=== PATIENT | female | born 1995 | race Caucasian/White ===

== ENCOUNTER 2016-05-07 08:24 | Inpatient (IN) | payer OTHER ==
[2016-05-07] MEDS ORDERED: PENICILLIN G-K 5 MILLION UNIT VIAL ONE ×2 (08:44→12:50)
[2016-05-07] MEDS ORDERED: LIDOCAINE 1% INJ-PF (10 MG/ML) 30 ML SDV ONE (08:44)
[2016-05-07] MEDS ORDERED: MISOPROSTOL 0.2 MG TABLET ONE (08:44)
[2016-05-07] MEDS ORDERED: OXYTOCIN/NORMAL SALINE 20 UNIT/1,000 ML RTUINJ ONE ×2 (08:44→14:56)
[2016-05-07] MEDS ORDERED: PENICILLIN G POTASSIUM 5,000,000 UNIT in DEXTROSE 5%-WATER 100 ML IV ONE (08:48)
[2016-05-07] MEDS ORDERED: RINGERS SOLUTION,LACTATED 1,000 ML IV ONE (08:48)
[2016-05-07 09:27] LABS: ABSOLUTE EOSINOPHILS # (AUTO) 0.1 10^3/uL (0.0-0.6); ABSOLUTE LYMPHOCYTES (AUTO) 1.7 10^3/uL (0.5-4.7); ABSOLUTE MONOCYTES (AUTO) 0.4 10^3/uL (0.1-1.4); ABSOLUTE NEUT (AUTO) 7.2 10^3/uL (1.7-8.2); BASOPHILS % (AUTO) 0.5 % (0-2); EOSINOPHILS % (AUTO) 1.2 % (0-6); HEMATOCRIT 29.7 % (36.0-47.0); HEMOGLOBIN 10.2 g/dL (12.0-15.5); HGB HCT DIFFERENCE 0.9; LYMPHOCYTES % (AUTO) 18.2 % (13-45); MEAN CORPUSCULAR HEMOGLOBIN 29.1 pg (27.0-33.4); MEAN CORPUSCULAR HGB CONC 34.4 g/dL (32.0-36.0); MEAN CORPUSCULAR VOLUME 85 fl (80-97); MONOCYTES % (AUTO) 4.7 % (3-13); RED BLOOD COUNT 3.51 10^6/uL (3.72-5.28); RED CELL DISTRIBUTION WIDTH 13.4 % (11.5-14.0); SEGMENTED NEUTROPHILS % (AUTO) 75.4 % (42-78); WHITE BLOOD COUNT 9.5 10^3/uL (4.0-10.5)
[2016-05-07] MEDS ORDERED: EPHEDRINE SULFATE INJ 50 MG/1 ML AMPULE ONE (09:56)
[2016-05-07] MEDS ORDERED: BUPIVACAINE HCL 0.25 % INJ/PF (2.5 MG/1 ML) 30 ML VIAL ONE (09:56)
[2016-05-07] MEDS ORDERED: FENTANYL/BUPIVACAINE/NS/PF 200 MCG/100 ML RTUINJ EPI ONE (09:56)
--- NOTE | 2016-05-07 10:00 | L&D Flow Sheet ---
LD Flowsheet Datetime Report Generated by CPN: 05/07/2016 10:00 Datetime: 05/07/2016 09:00 Uterine Activity Resting Tone (Palpate): Relaxed (Suraj Candace, RN) Assessment A Monitor Mode: External US (Suraj Candace, ) Pain Pain Scale: 4 (Suraj Candace, ) Pain Presence: Intermittent ([facility], ) Pain Type: Contraction ([facility], ) Pain Location: Abdomen; [facility] Pain Goal: 1 ([facility], ) Pain Coping: Breathing Through Contractions ([facility], ) Vaginal Exam Dilatation (cm): 6.0 (Suraj MILLER Maria) Effacement (%): 90 (Suraj Candace, ) Station: 0 (Suraj Candace, ) Membrane Status: Intact (Suraj Candace, ) Vaginal Bleeding: Scant (Suraj Candace, ) Maternal Assessment Level of Consciousness: Fully Conscious (Suraj Maria, RN) Headache: Denies (Suraj Maria, RN) Nausea/Vomiting: Denies (Suraj Maria, RN) RUQ Epigastric Pain: Denies (Surajneftali Maria, RN) Medications Antibiotics: Penicillin IV (Units) @ (Surajneftali Maria, RN) Patient Care Patient Position/Activity: HOB Lowered; Right Lateral (Surajneftali Maria, RN) Datetime: 05/07/2016 08:56 Vital Signs NBP Sys/Helena/Mean (mmHg): 107 (QS system process) : 69 (QS system process) : 80 (QS system process) Pulse: 104 (QS system process)
--- NOTE | 2016-05-07 12:00 | L&D Flow Sheet ---
LD Flowsheet Datetime Report Generated by CPN: 05/07/2016 12:00 Datetime: 05/07/2016 11:47 NBP Sys/[place]ena/Mean (mmHg): 96 (QS system process) : 54 (QS system process) : 72 (QS system process) Pulse: 71 (QS system process) Datetime: 05/07/2016 11:45 Monitor Mode: External (Suraj Maria RN) Frequency (min): Irregular (Suraj Maria RN) Quality: Mild (Suraj Candace, RN) Resting Tone (Palpate): Relaxed (Suraj Maria, RN) Monitor Mode: External US (Suraj Maria, RN) FHR Baseline Rate : 120 (Suraj Marai, RN) Variability: Moderate 6-25 bpm (Suraj Candace, RN) Accelerations: 15X15 (Suraj Candace, RN) Decelerations: None (Suraj Maria, RN) Datetime: 05/07/2016 11:39 Respirations: 16 (Suraj Maria, MILLER) Pain Scale: 0 (Suraj Maria, RN) Pain Presence: None/Denies (Suraj Maria, RN) Pain Type: N/A (Suraj Maria, RN) Pain Goal: 0 (Suraj Maria, RN) Pain Relief Measures: Epidural Given; Comfort Measures (Suraj Maria, RN) Patient Position/Activity: Right Lateral; Peanut Ball (Suraj Maria, RN) Comfort Measures: Breathing/Relaxation; Family Support (Suraj Maria, RN) Datetime: 05/07/2016 11:32 NBP Sys/Hel[place]/Mean (mmHg): 108 (QS system process) : 59 (QS system process) : 78 (QS system process) Pulse: 67 (QS system process) Datetime: 05/07/2016 11:30 Monitor Mode: External (Suraj Candace, RN) Frequency (min): 6-8 (Suraj Candace, RN) Quality: Mild (Suraj Candace, RN) Duration (sec): 70-80 (Suraj Candace, RN) Resting Tone (Palpate): Relaxed (Suraj Candace, RN) Monitor Mode: External US (Suraj Candace, RN) FHR Baseline Rate : 120 (Suraj Candace, RN) Variability: Moderate 6-25 bpm (Suraj Candace, RN) Accelerations: 15X15 (Suraj Candace, RN) Decelerations: None (Suraj Candace, RN) Datetime: 05/07/2016 11:18 NBP Sys/Hel[place]/Mean (mmHg): 110 (QS system process) : 58 (QS system process) : 79 (QS system process) Pulse: 69 (QS system process) Datetime: 05/07/2016 11:15 Monitor Mode: External (Suraj Candace, RN) Frequency (min): 6-7 (Suraj Candace, RN) Quality: Mild (Suraj Candace, RN) Duration (sec): 80-100 (Suraj Candace, RN) Resting Tone (Palpate): Relaxed (Suraj Candace, RN) Monitor Mode: External US (Suraj Candace, RN) FHR Baseline Rate : 125 (Suraj Candace, RN) Variability: Moderate 6-25 bpm (Suraj Candace, RN) Accelerations: 15X15 (Suraj Candace, RN) Decelerations: None (Suraj Candace, RN) Datetime: 05/07/2016 11:04 NBP Sys/[place]/Mean (mmHg): 110 (QS system process) : 58 (QS system process) : 78 (QS system process) Pulse: 67 (QS system process) Datetime: 05/07/2016 11:00 Monitor Mode: External US (Suraj Maria, RN) FHR Baseline Rate : 125 (Suraj Maria, RN) Variability: Moderate 6-25 bpm (Suraj Maria, RN) Accelerations: 10X10 (Suraj Maria, RN) Decelerations: None (Suraj Maria, RN) Datetime: 05/07/2016 10:47 NBP Sys/[place]/Mean (mmHg): 115 (QS system process) : 62 (QS system process) : 80 (QS system process) Pulse: 75 (QS system process) Datetime: 05/07/2016 10:45 Monitor Mode: External (Suraj Maria, RN) Frequency (min): Irregular (Suraj Candace, RN) Quality: Mild (Suraj Candace, RN) Duration (sec): 70 (Suraj Candace, RN) Datetime: 05/07/2016 10:44 Monitor Mode: External US (Suraj Candace, RN) FHR Baseline Rate : 120 (Suraj Candace, RN) Variability: Moderate 6-25 bpm (Suraj Candace, RN) Accelerations: 15X15 (Suraj Candace, RN) Decelerations: None (Suraj Candace, RN) Datetime: 05/07/2016 10:42 NBP Sys/[place]/Mean (mmHg): 116 (QS system process) : 62 (QS system process) : 81 (QS system process) Pulse: 64 (QS system process) Datetime: 05/07/2016 10:36 NBP Sys/[place]/Mean (mmHg): 118 (QS system process) : 60 (QS system process) : 83 (QS system process) Pulse: 64 (QS system process) Datetime: 05/07/2016 10:35 NBP Sys/[place]/Mean (mmHg): 120 (QS system process) : 62 (QS system process) : 83 (QS system process) Pulse: 63 (QS system process) Datetime: 05/07/2016 10:34 NBP Sys/[place]/Mean (mmHg): 125 (QS system process) : 62 (QS system process) : 86 (QS system process) Pulse: 75 (QS system process) I/O Interventions: Lopez Cath Inserted (Suraj Maria RN) Datetime: 05/07/2016 10:33 NBP Sys/[place]/Mean (mmHg): 119 (QS system process) : 59 (QS system process) : 82 (QS system process) Pulse: 76 (QS system process) Datetime: 05/07/2016 10:32 NBP Sys/[place]/Mean (mmHg): 118 (QS system process) : 60 (QS system process) : 82 (QS system process) : 84 (QS system process) Pulse: 65 (QS system process) Pulse: 73 (QS system process) Procedure Type: Epidural (Suraj Maria RN) Epidural Procedure Other: Pump Started (Suraj Maria RN) Anesthesia Level Check: T10- Umbilicus (Suraj Maria RN) Datetime: 05/07/2016 10:31 NBP Sys/[place]/Mean (mmHg): 125 (QS system process) : 60 (QS system process) : 87 (QS system process) Pulse: 69 (QS system process) Datetime: 05/07/2016 10:30 Monitor Mode: External US (Suraj Maria, RN) FHR Baseline Rate : 125 (Suraj Candace, RN) Variability: Moderate 6-25 bpm (Suraj Candace, RN) Accelerations: 15X15 (Suraj Candace, RN) Datetime: 05/07/2016 10:29 NBP Sys/[place]/Mean (mmHg): 133 (QS system process) : 72 (QS system process) : 93 (QS system process) Pulse: 78 (QS system process) Contraction Comments: Difficult to determine pts contraction pattern due to patients positioning for epidural (Suraj Maria, RN) Datetime: 05/07/2016 10:28 NBP Sys/[place]/Mean (mmHg): 123 (QS system process) : 67 (QS system process) : 89 (QS system process) Pulse: 75 (QS system process) Datetime: 05/07/2016 10:27 NBP Sys/[place]/Mean (mmHg): 137 (QS system process) : 77 (QS system process) : 101 (QS system process) Pulse: 64 (QS system process) Datetime: 05/07/2016 10:26 NBP Sys/[place]/Mean (mmHg): 138 (QS system process) : 76 (QS system process) : 102 (QS system process) Pulse: 57 (QS system process) Epidural Procedure: Loading Dose (Suraj Maria RN) Datetime: 05/07/2016 10:25 Epidural Procedure: Cath Placed (Suraj Maria RN) Epidural Procedure: Test Dose (Suraj Maria RN) Datetime: 05/07/2016 10:18 Procedure Type: Epidural (Suraj Maria RN) Procedure Verify: Correct Patient Identity; Agreement on Procedure to be Done; Correct Patient Position; Relevant Images and Results are Properly Labeled and Displayed (Suraj Maria RN) Anesthesia Plans: Epidural (Suraj Maria RN) Epidural Positioning: Sitting (Suraj Maria RN) Anesthesia Comments: Dr. Juarez at bedside (Suraj Maria RN) Datetime: 05/07/2016 10:04 NBP Sys/[place]/Mean (mmHg): 106 (QS system process) : 56 (QS system process) : 78 (QS system process) Pulse: 64 (QS system process) Datetime: 05/07/2016 10:00 Monitor Mode: External (Suraj Maria RN) Frequency (min): 7 (Suraj Maria RN) Quality: Mild (Suraj Maria RN) Duration (sec): 60-110 (Suraj Maria RN) Resting Tone (Palpate): Relaxed (Suraj Maria RN) Monitor Mode: External US (Suraj Maira RN) FHR Baseline Rate : 125 (Suraj Maria RN) Variability: Moderate 6-25 bpm (Suraj Maria RN) Accelerations: 15X15 (Suraj Maria RN) Decelerations: None (Suraj Maria RN) Procedure Type: Epidural (Suraj Maria RN) Procedure Verify: Correct Patient Identity; Agreement on Procedure to be Done; Relevant Images and Results are Properly Labeled and Displayed (Suraj Maria RN)
[2016-05-07 12:08] LABS: APPEARANCE,URINE CLOUDY; BILIRUBIN,URINE NEGATIVE (NEGATIVE); GLUCOSE, URINE NEGATIVE (NEGATIVE); KETONES,URINE NEGATIVE (NEGATIVE); LEUKOCYTE ESTERASE,URINE LARGE (NEGATIVE); NITRITE,URINE NEGATIVE (NEGATIVE); PROTEIN,URINE 30 mg/dL (NEGATIVE); UROBILINOGEN,URINE NEGATIVE mg/dL (<2.0)
--- NOTE | 2016-05-07 12:40 | L&D Progress Notes ---
PROGRESS NOTES Datetime Report Generated by CPN: 05/07/2016 12:40 PROGRESS NOTE Impression: Normal Progression of Labor Impression: Normal Progression of Labor Procedures: Artificial ROM; Sterile Vag Exam Procedures: Artificial ROM; Sterile Vag Exam Plan: Continue Present Management Plan: Continue Present Management Informed Consent Obtained: Vaginal Delivery Informed Consent Obtained: Vaginal Delivery Vital Signs : Reviewed Vital Signs : Reviewed; Within Normal Limits Comment: Comfortable with epidural AROM, clear Anticipate VAGINAL EXAM Dilatation: 8 Dilatation: 7 Effacement: 100 Effacement: 90 Station: 1 Station: 0 Contractions: irregular Contractions: 2-6 MEMBRANES Membranes: Ruptured Membranes: Intact Amniotic Fluid Color: Clear FETUS A FHR - Baseline: 125 Monitoring: External US Variability: Moderate 6-25bpm Decelerations: None FHR Category: Category I Estimated Weight (gm): 3400 Presentation: Vertex SIGNATURE SIGNATURE: [id number] Assignment: Veronique Barnes MD Signature: with User ID: [email or web address] : with User ID: Estee
[2016-05-07 12:50] LABS: URINE BARBITURATES SCREEN NEGATIVE; URINE METHADONE SCREEN NEGATIVE; URINE OPIATES LOW NEGATIVE; URINE PHENCYCLIDINE SCREEN NEGATIVE
[2016-05-07] MEDS: RINGERS SOLUTION,LACTATED 1,000 ML IV PRN ×2 (13:04→13:12)
[2016-05-07] MEDS: PENICILLIN G POTASSIUM 2,500,000 UNIT in DEXTROSE 5%-WATER 50 ML IV SCH ×3 (13:14→19:50)
--- NOTE | 2016-05-07 14:00 | L&D Flow Sheet ---
LD Flowsheet Datetime Report Generated by CPN: 05/07/2016 14:00 Datetime: 05/07/2016 13:48 NBP Sys/[place]/Mean (mmHg): 135 (QS system process) : 78 (QS system process) : 102 (QS system process) Pulse: 72 (QS system process) LaborFlag: Labor (QS system process) Datetime: 05/07/2016 13:32 NBP Sys/[place]/Mean (mmHg): 122 (QS system process) : 70 (QS system process) : 90 (QS system process) Pulse: 50 (QS system process) LaborFlag: Labor (QS system process) Datetime: 05/07/2016 13:29 Monitor Mode: External US (Suraj Maria RN) FHR Baseline Rate : 125 (Suraj Maria, RN) Variability: Moderate 6-25 bpm (Suraj Maria, RN) Accelerations: 10X10 (Suraj Maria, RN) Decelerations: None (Suraj Maria, RN) Patient Position/Activity: Left Lateral; Peanut Ball (Suraj Maria, RN) Datetime: 05/07/2016 13:17 NBP Sys/[place]/Mean (mmHg): 133 (QS system process) : 63 (QS system process) : 88 (QS system process) Pulse: 58 (QS system process) LaborFlag: Labor (QS system process) Datetime: 05/07/2016 13:15 Monitor Mode: External (Suraj Candace, RN) Frequency (min): 3-5 (Suraj Candace, RN) Quality: Mild/Moderate (Suraj Candace, RN) Duration (sec): 70-110 (Suraj Candace, RN) Resting Tone (Palpate): Relaxed (Suraj Candace, RN) Monitor Mode: External US (Suraj Candace, RN) FHR Baseline Rate : 125 (Suraj Candace, RN) Variability: Minimal - Undetectable to <=5 bpm (Suraj Candace, RN) Accelerations: None (Suraj Candace, RN) Decelerations: None (Suraj Candace, RN) Datetime: 05/07/2016 13:02 NBP Sys/[place]/Mean (mmHg): 103 (QS system process) : 56 (QS system process) : 75 (QS system process) Pulse: 62 (QS system process) LaborFlag: Labor (QS system process) Datetime: 05/07/2016 13:00 Monitor Mode: External (Suraj Candace, RN) Frequency (min): 3-5 (Suraj Candace, RN) Quality: Mild/Moderate (Suraj Candace, RN) Duration (sec): 60-110 (Suraj Candace, RN) Resting Tone (Palpate): Relaxed (Suraj Candace, RN) Monitor Mode: External US (Suraj Candace, RN) FHR Baseline Rate : 125 (Suraj Candace, RN) Variability: Moderate 6-25 bpm (Suraj Candace, RN) Accelerations: 10X10 (Suraj Candace, RN) Decelerations: None (Suraj Candace, RN) Antibiotics: Penicillin IV (Units) @ [id number] (Suraj Candace, RN) Datetime: 05/07/2016 12:49 NBP Sys/[place]/Mean (mmHg): 111 (QS system process) : 58 (QS system process) : 81 (QS system process) Pulse: 55 (QS system process) LaborFlag: Labor (QS system process) Datetime: 05/07/2016 12:45 Monitor Mode: External (Suraj Candace, RN) Frequency (min): Irregular (Suraj Candace, RN) Quality: Mild/Moderate (Suraj Candace, RN) Resting Tone (Palpate): Relaxed (Suraj Candace, RN) Monitor Mode: External US (Suraj Candace, RN) FHR Baseline Rate : 125 (Suraj Candace, RN) Variability: Moderate 6-25 bpm (Suraj Candace, RN) Accelerations: 15X15 (Suraj Candace, RN) Decelerations: None (Suraj Candace, RN) Datetime: 05/07/2016 12:38 Patient Position/Activity: High Fowlers; Tailors (Suraj Candace, RN) I/O Interventions: Clear Liquids Given (Suraj Candace, RN) Datetime: 05/07/2016 12:33 Stage of : Labor (Maine Rivera RN) Dilatation (cm): 8.0 (Maine Rivera RN) Effacement (%): 100 (Maine Rivera RN) Station: 1 (Maine Rivera RN) Exam by: Santo YOUNG CNM (Maine Rivera RN) Membrane Status: Ruptured (Maine Rivera RN) Membranes Rupture Method: Artificial (Maine Rivera RN) Amniotic Fluid Color: Clear (Maine Rivera RN) Amniotic Fluid Amount: Moderate (Maine Rivera RN) Vaginal Bleeding: Small (Maine Rivera RN) Cervix, Consistency: Soft (Maine Rivera RN) Cervix, Position: Anterior (Maine Rivera RN) Provider Reviewed Strip: Yes (Maine Rivera RN) Communication: RN at Bedside; RN Reviewed Strip; Provider at Bedside (Maine Rivera RN) Communication Comments: CNM @ BS (Maine Rivera RN) Datetime: 05/07/2016 12:32 NBP Sys/[place]/Mean (mmHg): 99 (QS system process) : 61 (QS system process) : 74 (QS system process) LaborFlag: Labor (QS system process) Datetime: 05/07/2016 12:30 Stage of : Labor (Maine Rivera RN) Respirations: 18 (Maine Rivera RN) Temperature (F): 98.0 (Maine Rivera RN) Temperature (C): 36.7 (QS system process) Monitor Mode: External (Maine Rivera RN) Frequency (min): IRREG (Maine Rivera RN) Quality: Moderate (Maine Rivera RN) Duration (sec): 60-90 (Maine Rivera RN) Resting Tone (Palpate): Relaxed (Maine Rivera RN) Monitor Mode: External US (Maine Rivera RN) FHR Baseline Rate : 120 (Maine Rivera RN) FHR Baseline Changes: No Baseline Change (Maine Rivera RN) Variability: Moderate 6-25 bpm (Maine Rivera RN) Accelerations: 15X15 (Maine Rivera RN) Decelerations: None (Maine Rivera RN) Pain Scale: 0 (Maine Rivera RN) Pain Presence: None/Denies (Maine Rivera RN) Pain Type: N/A (Maine Rivera RN) Pain Relief Measures: Comfort Measures (Maine Rivera RN) Pain Coping: Talking Through Contractions (Maine Rivera RN) IV/Blood Work: IV Infusing per Order (Maine Rivera, MILLRE) Patient Position/Activity: Left Extreme; Peanut Ball (Maine Rivera, MILLER) Comfort Measures: Family Support (Maine Rivera RN) Communication: RN at Bedside; RN Reviewed Strip (Maine Rivera RN) LaborFlag: Labor (QS system process) Datetime: 05/07/2016 12:17 NBP Sys/[place]/Mean (mmHg): 102 (QS system process) : 59 (QS system process) : 78 (QS system process) Pulse: 52 (QS system process) LaborFlag: Labor (QS system process) Datetime: 05/07/2016 12:15 Temperature (F): 98.0 (Suraj Maria RN) Temperature (C): 36.7 (QS system process) Temperature Route: Oral (Suraj Maria RN) Monitor Mode: External (Suraj Maria RN) Frequency (min): Irregular (Suraj Maria RN) Quality: Mild/Moderate (Suraj Maria RN) Resting Tone (Palpate): Relaxed (Suraj Maria RN) Monitor Mode: External US (Suraj Maria RN) FHR Baseline Rate : 125 (Suraj Maria RN) Variability: Moderate 6-25 bpm (Suraj Maria RN) Accelerations: 15X15 (Suraj Maria RN) Decelerations: None (Suraj Maria RN) Patient Position/Activity: HOB Lowered; Left Lateral; Peanut Ball (Suraj Maria RN) LaborFlag: Labor (QS system process) Datetime: 05/07/2016 12:02 NBP Sys/[place]/Mean (mmHg): 96 (QS system process) : 51 (QS system process) : 67 (QS system process) Pulse: 61 (QS system process) LaborFlag: Labor (QS system process) Datetime: 05/07/2016 12:00 Monitor Mode: External (Suraj Maria RN) Frequency (min): Irregular (Suraj Maria RN) Quality: Mild/Moderate (Suraj Maria RN) Resting Tone (Palpate): Relaxed (Suraj Maria RN) Monitor Mode: External US (Suraj Maria RN) FHR Baseline Rate : 120 (Suraj Maria RN) Variability: Moderate 6-25 bpm (Suraj Maria RN) Accelerations: 15X15 (Suraj Maria RN) Decelerations: None (Suraj Maria RN)
[2016-05-07] MEDS ORDERED: DIBUCAINE 1% OINTMENT 28 GM TP PRN (14:32)
[2016-05-07] MEDS ORDERED: BENZOCAINE/MENTHOL AEROSOL SPRAY 56 ML TOP PRN (14:32)
[2016-05-07] MEDS ORDERED: ACETAMINOPHEN WITH CODEINE #3 TABLET PO PRN ×2 (14:32)
[2016-05-07] MEDS ORDERED: DIPH/PERTUSS(ACELL)/TETANUS VAC/PF 0.5 ML SYR (>=10YO) IM PRN (14:32)
[2016-05-07] MEDS ORDERED: MEASLES,MUMPS&RUBELLA VACC/PF 0.5 ML VIAL SUBCUT PRN (14:32)
[2016-05-07] MEDS ORDERED: ZOLPIDEM TARTRATE 5 MG TABLET PO PRN (14:32)
[2016-05-07] MEDS ORDERED: OXYTOCIN/NORMAL SALINE 1,000 ML IV PRN (14:32)
--- NOTE | 2016-05-07 16:00 | L&D Flow Sheet ---
LD Flowsheet Datetime Report Generated by CPN: 05/07/2016 16:00 Datetime: 05/07/2016 15:45 Stage of : Recovery (Suraj Maria RN) Pulse: 63 (Suraj Maria RN) Respirations: 16 (Suraj Maria RN) Pain Scale: 0 (Suraj Maria RN) Pain Presence: None/Denies (Suraj Maria RN) Pain Type: N/A (Suraj Maria RN) Pain Goal: 0 (Suraj Maria ) Datetime: 05/07/2016 15:32 NBP Sys/[place]/Mean (mmHg): 116 (QS system process) : 59 (QS system process) : 82 (QS system process) Pulse: 63 (QS system process) Datetime: 05/07/2016 15:30 Stage of : Recovery (Suraj Maria RN) Respirations: 16 (Suraj MILLER Maria) Pain Scale: 0 (Suraj MILLER Maria) Pain Presence: None/Denies (Suraj MILLER Maria) Pain Type: N/A (Suraj MILLER Maria) Pain Goal: 0 (Suraj Candace ) Datetime: 05/07/2016 15:17 NBP Sys/[place]/Mean (mmHg): 125 (QS system process) : 74 (QS system process) : 88 (QS system process) Pulse: 88 (QS system process) Datetime: 05/07/2016 15:15 Stage of : Recovery (Suraj Maria RN) Pain Scale: 0 (Suraj Maria RN) Pain Presence: None/Denies (Suraj Maria RN) Pain Type: N/A (Suraj Maria RN) Pain Goal: 0 (Suraj Maria RN) Datetime: 05/07/2016 15:02 NBP Sys/[place]/Mean (mmHg): 117 (QS system process) : 66 (QS system process) : 86 (QS system process) Pulse: 73 (QS system process) Datetime: 05/07/2016 15:00 Stage of : Recovery (Suraj Maria RN) Pain Scale: 0 (Suraj Maria RN) Pain Presence: None/Denies (Suraj Maria RN) Pain Type: N/A (Suraj Maria RN) Pain Goal: 0 (Suraj Maria RN) Datetime: 05/07/2016 14:47 NBP Sys/[place]/Mean (mmHg): 118 (QS system process) : 63 (QS system process) : 86 (QS system process) Pulse: 69 (QS system process) Datetime: 05/07/2016 14:45 Stage of : Recovery (Suraj Marai RN) Pulse: 73 (Suraj Maria RN) Respirations: 16 (Suraj Maria RN) Temperature (F): 97.8 (Suraj Maria RN) Temperature (C): 36.6 (QS system process) Temperature Route: Oral (Suraj Maria RN) Pain Scale: 0 (Suraj Maria RN) Pain Presence: None/Denies (Suraj Maria RN) Pain Type: N/A (Suraj Maria RN) Pain Goal: 0 (Suraj Candace, RN) Datetime: 05/07/2016 14:32 NBP Sys/[place]/Mean (mmHg): 120 (QS system process) : 60 (QS system process) : 87 (QS system process) Pulse: 74 (QS system process) Datetime: 05/07/2016 14:30 Stage of : Recovery (Suraj Candace, RN) Datetime: 05/07/2016 14:18 NBP Sys/[place]/Mean (mmHg): 116 (QS system process) : 56 (QS system process) : 81 (QS system process) Pulse: 71 (QS system process) Datetime: 05/07/2016 14:15 Stage of : Recovery (Suraj Maria RN) Pain Scale: 1 (Suraj Maria RN) Pain Presence: None/Denies (Suraj Maria RN) Pain Type: Sore in perineum area (Suraj Maria RN) Pain Location: Perineum (Suraj Maria RN) Pain Goal: 0 (Suraj Maria RN) Pain Relief Measures: Comfort Measures (Suraj Maria RN) Datetime: 05/07/2016 14:02 NBP Sys/[place]/Mean (mmHg): 135 (QS system process) : 60 (QS system process) : 87 (QS system process) Pulse: 74 (QS system process) Datetime: 05/07/2016 14:00 Stage of : (Suraj Maria RN) Monitor Mode: External US (Suraj Maria RN) FHR Baseline Rate : 130 (Suraj Maria RN) Variability: Moderate 6-25 bpm (Suraj Maria, RN) Accelerations: 15X15 (Suraj Maria, RN) Decelerations: None (Suraj Maria, RN) Pain Scale: 1 (Suraj Maria RN) Pain Presence: None/Denies (Suraj Maria RN) Pain Type: Cramping (Suraj Maria, MILLER) Pain Location: Perineum (uSraj Maria, RN) Pain Goal: 0 (Suraj Maria RN) Pain Relief Measures: Comfort Measures (Suraj Maria RN)
--- NOTE | 2016-05-07 16:04 | Delivery Summary ---
Del Sum A-C Datetime Report Generated by CPN: 05/07/2016 16:03 ADMISSION DATA Chief Complaint: Uterine Contractions Indication for Induction: Not Applicable Admission Impression: Term, Intrauterine ; Active Labor; Intact Membranes Admission Impression Comments: GBS positive Admit Provider Comments: Active labor GBS positive, pcn Pt may have epidural Anticipate DELIVERY PERSONNEL Delivery Doctor:: Yusra Reyes CNM Nurse Glass Beveler Certified:: Yusra Reyes CNM Labor and Delivery Nurse:: Suraj Mendoza RNwater filtration technician Nurse:: Maine Rivera RN Student Observers:: Estee Learyub Tech/JOESPH: Divya Matute CNA II MATERNAL INFORMATION Delivery Anesthesia: Epidural Medications After Delivery: Pitocin Bolus-Please Comment Meds After Delivery Comment: Gave 20 Units/1000ml NS Estimated Blood Loss (ml): 200 Maternal Complications: None Provider Comments: of viable female infant over intact perineum, head delivered without difficulty, loose nuchal cord X1 noted, reduced, shoulders and body delivered without difficulty. with spontaneous cry and respirations to maternal abdomen cord clamped X2, cut free after 2 minute delay. Infant kept skin to skin. Spontaneous delivery of intact placenta, 3 VC via shelby mechanism. Vagina and perineum and inspected, no lacerations noted, hemostasis acheived with external fundal massage and IV pitocin. Mother and infant in stable condition, routine pp care. LABOR SUMMARY EDC: 05/06/2016 00:00 No. Babies in Womb: 1 Attempted: No Labor Anesthesia: Epidural LABOR INFORMATION Reason for Induction: Not Applicable Onset of Labor: 05/07/2016 08:45 Complete Dilatation: 05/07/2016 13:51 Other Ripening Agents: None Oxytocin: N/A Group B Beta Strep: positive Antibiotics # of Doses: 2 Antibiotics Time of Last Dose: 1300 Name of Antibiotic Given: PCN Steroids Given: None Reason Steroids Not Administered: Not Applicable MEMBRANES Membranes Rupture Method: Artificial Rupture of Membranes: 05/07/2016 12:33 Length of Rupture (hr): 1.33 Amniotic Fluid Color: Clear Amniotic Fluid Amount: Moderate Amniotic Fluid Odor: Normal STAGES OF LABOR Stage 1 hr: 5 Stage 1 min: 6 Stage 2 hr: 0 Stage 2 min: 2 Stage 3 hr: 0 Stage 3 min: 4 Total Time in Labor hr: 5 Total Time in Labor min: 12 VAGINAL DELIVERY Episiotomy: None Laceration Extension: N/A Laceration Type: None Laceration Repair: Not Applicable Laceration Repair Note: n/a Sponge Count Correct: N/A Sharps Count Correct: N/A CSECTION DELIVERY Primary Indication: N/A Secondary Indication: N/A CSection Incidence: N/A Labor: N/A Elective: N/A CSection Incision: N/A BABY A INFORMATION Infant Delivery Date/Time: 05/07/2016 13:53 Method of Delivery: Vaginal Born in Route : No : N/A Forceps: N/A Vacuum Extraction: N/A Shoulder Dystocia : No PRESENTATION/POSITION BABY A Presentation: Cephalic Cephalic Presentation: Vertex Vertex Position: Left Occipital Anterior Breech Presentation: N/A PLACENTA INFORMATION BABY A Placenta Delivery Time : 05/07/2016 13:57 Placenta Method of Delivery: Spontaneous Placenta Status: Delivered SCORES BABY A Heart Rate 1 min: >100 bpm Resp Effort 1 min: Good Cry Reflex Irritability 1 min: Cough or Sneeze or Pulls Away Muscle Tone 1 min: Active Motion Color 1 min: Body [place], Extremities Blue Resuscitation Effort 1 min: N/A SCORE 1 MIN: 9 Heart Rate 5 min: >100 bpm Resp Effort 5 min: Good Cry Reflex Irritability 5 min: Cough or Sneeze or Pulls Away Muscle Tone 5 min: Active Motion Color 5 min: Body [place], Extremities Blue Resuscitation Effort 5 min: N/A SCORE 5 MIN: 9 INFORMATION BABY A Gestational Age at Delivery: 40.1 Gestational Status: Full Term- 39- 40.6 Weeks Infant Outcome : Liveborn Infant Condition : Stable Infant Sex: Female IDENTIFICATION BABY A Infant Verification Date/Time: 05/07/2016 14:46 ID Band Number: [id number] Mother's Name Verified: Yes RN Verifying Infant: Rey Mendoza RN Additional Verifying Personnel: MEHRAN Rivera RN WEIGHT/LENGTH BABY A Infant Birthweight (gm): 3425 Infant Weight (lb): 7 Infant Weight (oz): 9 Infant Length (in): 18.50 Infant Length (cm): 46.99 CORD INFORMATION BABY A No. Cord Vessels: 3 Nuchal Cord : N/A Cord Blood Taken: Yes-For Storage (Mom's Blood type +) Infant Suction: None ASSESSMENT BABY A Complications: Other Complications- Other: TERMINAL MECONIUM Physical Findings at Delivery: Within Normal Limits Infant Respirations: Appears Normal Skin to Skin: Yes Skin to Skin Time (min): 60 Adult Parole Officer/ALS Called : No Care By: MEHRAN RIVERA RN; Mariam MENDOZA RN Transferred To: Remains with Mother BABY B INFORMATION : N/A SIGNATURES Assignment: Veronique Barnes MD Signature: with User ID: [email or web address] : with User ID: [email or web address]
--- NOTE | 2016-05-07 17:06 | Admission Physical ---
Datetime Report Generated by CPN: 05/07/2016 17:06 CURRENT ADMISSION Hx Assessment: The History has been Reviewed and is Current Chief Complaint: Uterine Contractions Indication for Induction: Not Applicable Admit Impression- Other: GBS positive Admit Plan: Admit to Unit; Initiate Labor Protocol ALLERGIES Medication Allergies: No Medication Allergies: No Known Allergies (05/07/2016) Medication Allergies: No Known Allergies (12/06/2015) Latex: No Latex Allergies Food Allergies: None Environmental Allergies: None OBSTETRICAL HISTORY EDC: 05/06/2016 00:00 : 4 Para: 3 Term: 3 : 0 SAB: 0 Ectopic: 0 Livin Cesareans: 0 VBACs: 0 Multiple Births: 0 Gestational Diabetes: No Rh Sensitization: No Incompetent Cervix: No SARA: No Infertility: No ART Treatment: No Uterine Anomaly: No IUGR: No Hx Previous C/S: No Macrosomia: No Hx Loss/Stillborn: No PIH: No Hx : No Placenta Previa/Abruption: No Depression/PP Depression: Yes PTL/PROM: No Post Hemorrhage: No Current Procedures: Ultrasound; NST Obstetrical History Comments: PPD AFTER 1ST SEE RECORDS Alcohol: Yes Advised to Stop: Yes Alcohol Comments: As a teenager Marijuana : Yes Marijuana Comments: As a teenager Cocaine: No Other Illicit Drugs: No Cigarettes: Current Everyday Smoker. [id number] Cigarette Frequency: 5 - 10 per day Advised to Stop: Yes MEDICAL HISTORY Diabetes: No Blood Transfusion: No Pulmonary Disease (Asthma, TB): No Breast Disease: No Hypertension: No Tactical Debriefer Officer Surgery: No Heart Disease: No Hosp/Surgery: Yes Autoimmune Disorder: No Anesthetic Complications: No Kidney Disease: No Abnormal Pap Smear: No Neuro/Epilepsy: No Psychiatric Disorders: No Other Medical Diseases: No Hepatitis/Liver Disease: No Significant Family History: No Varicosities/Phlebitis: No Trauma/Violence : No Thyroid Dysfunction: No Medical History Comments: CHILDBIRTH INFECTIOUS HISTORY Gonorrhea: No Genital Herpes: No Chlamydia: No Tuberculosis: No Syphilis: No Hepatitis: No HIV/AIDS Exposure: No Rash or Viral Illness: No HPV: No PHYSICAL EXAM General: Normal HEENT: Normal Neurologic: Normal Thyroid: Deferred Heart: Normal Lungs: Normal Breast: Normal Back: Normal Abdomen: Normal Genitourinary Exam: Normal Extremities: Normal DTRs: Normal Pelvic Type: Adequate Vital Signs: Reviewed; Within Normal Limits VAGINAL EXAM Dilatation: 8 Dilatation: 7 Effacement: 100 Effacement: 90 Station: 1 Station: 0 Contraction Comments: irregular Contraction Comments: 2-6 MEMBRANES Membranes: Ruptured Membranes: Intact Amniotic Fluid Color: Clear FETUS A EGA: 40.1 Monitoring: External US FHR- Baseline: 125 Variability: Moderate 6-25bpm Accelerations: 15X15 Decelerations: None FHR Category: Category I Estimated Weight (gm): 3400 Presentation: Vertex Admit Comment: Active labor GBS positive, pcn Pt may have epidural Anticipate PLANS FOR LABOR AND DELIVERY Pain Management: Epidural Feeding Preference: Both Benefit of Breast Feed Discussed: Yes Circumcision: N/A INFORMED CONSENT Informed Consent Obtained: Vaginal Delivery Informed Consent Obtained: Vaginal Delivery Assignment: Veronique Barnes MD Signature: with User ID: [email or web address] : with User ID: [email or web address]
[2016-05-07] MEDS: FERROUS SULFATE 325 MG TABLET PO SCH (18:42)
[2016-05-07] MEDS: DOCUSATE SODIUM 100 MG CAPSULE PO SCH (18:42)
--- NOTE | 2016-05-07 19:01 | L&D Flow Sheet ---
LD Flowsheet Datetime Report Generated by CPN: 05/07/2016 19:00 Datetime: 05/07/2016 17:02 Vital Signs Stage of : Recovery (Maine Leighann Roulund, RN) Datetime: 05/07/2016 16:47 NBP Sys/Helena/Mean (mmHg): 116 (QS system process) : 61 (QS system process) : 83 (QS system process) Pulse: 57 (QS system process) Datetime: 05/07/2016 16:45 Vital Signs Stage of : Recovery (Surajsanto Maria, RN) Pulse: 57 (Suraj Candace, RN) Respirations: 16 (Suraj Maria, RN) Pain Pain Scale: 0 (Suraj Candace, RN) Pain Presence: None/Denies (Suraj Candace, RN) Pain Type: N/A (Suraj Candace, RN) Pain Goal: 0 (Suraj Candace, RN) Datetime: 05/07/2016 16:32 NBP Sys/Helena/Mean (mmHg): 111 (QS system process) : 54 (QS system process) : 78 (QS system process) Pulse: 65 (QS system process) Datetime: 05/07/2016 16:30 Vital Signs Stage of : Recovery (Suraj Maria, RN) Pulse: 68 (Suraj Maria, RN) Respirations: 16 (Suraj Maria, RN) Pain Pain Scale: 1 (Suraj Maria, RN) Pain Presence: Intermittent (Suraj Maria, RN) Pain Type: Cramping; Dull (Suraj Maria, RN) Pain Location: Abdomen (Suraj Maria, RN) Pain Goal: 0 (Suraj Maria, RN) Pain Relief Measures: Comfort Measures (Suraj Maria, RN) Datetime: 05/07/2016 16:17 Vital Signs Stage of : Recovery (Maine Lawton Saleemulicesrosaura, RN) NBP Sys/Helena/Mean (mmHg): 109 (QS system process) : 55 (QS system process) : 75 (QS system process) Pulse: 68 (QS system process) Respirations: 18 (Maine Rivera, RN) Datetime: 05/07/2016 16:03 Vital Signs Stage of : Recovery (Suraj Rocaford, RN) NBP Sys/Helena/Mean (mmHg): 135 (QS system process) : 62 (QS system process) : 89 (QS system process) Pulse: 60 (QS system process) Pain Pain Scale: 1 (Suraj Maria RN) Pain Presence: Intermittent (Suraj Maria RN) Pain Type: Cramping; Dull (Suraj Maria RN) Pain Location: Abdomen (Suraj Maria RN) Pain Goal: 0 (Suraj Maria RN) Pain Relief Measures: Pt declines pain medication (Suraj Maria RN) Datetime: 05/07/2016 16:00 Vital Signs Stage of : Recovery (Suraj Maria RN) Pulse: 60 (Suraj Maria RN) Respirations: 16 (Suraj Maria RN) Temperature ([facility]): [facility].9 [facility] Temperature (C): 37.2 (QS system process) Temperature Route: Oral (Suraj Maria, ) Pain Pain Scale: 2 (Suraj Candace, ) Pain Presence: Intermittent [facility] Pain Type: Cramping; Dull ([facility] Pain Location: Abdomen ([facility]) Pain Goal: 0 ([facility]) Pain Relief Measures: Pt declines medication for cramping ([facility]) Datetime: 05/07/2016 15:45 Vital Signs Stage of : Recovery (Suraj Maria, ) Pulse: 63 (Suraj Maria, RN) Respirations: 16 (Suraj Maria, MILLER) Pain Pain Scale: 0 (Suraj Maria, ) Pain Presence: None/Denies (Suraj Maria, ) Pain Type: N/A (Suraj Maria, ) Pain Goal: 0 (Suraj Maria, ) Datetime: 05/07/2016 15:32 NBP Sys/Helena/Mean (mmHg): 116 (QS system process) : 59 (QS system process) : 82 (QS system process) Pulse: 63 (QS system process) Datetime: 05/07/2016 15:30 Vital Signs Stage of : Recovery (Suraj Maria, RN) Respirations: 16 (Surajsanto Maria, RN) Pain Pain Scale: 0 (Suraj Maria, RN) Pain Presence: None/Denies (Suraj Maria, RN) Pain Type: N/A (Suraj Maria, RN) Pain Goal: 0 (Suraj Maria, RN) Datetime: 05/07/2016 15:17 Vital Signs Stage of : Recovery (Maine Leighann Saleemlund, RN) NBP Sys/Helena/Mean (mmHg): 125 (QS system process) : 74 (QS system process) : 88 (QS system process) Pulse: 88 (QS system process) Respirations: 18 (Maine Leighann Roulund, RN) Datetime: 05/07/2016 15:15 Vital Signs Stage of : Recovery (Suraj Rocaford, RN) Pain Pain Scale: 0 (Suraj Maria, RN) Pain Presence: None/Denies (Suraj Maria, RN) Pain Type: N/A (Surajsanto Maria, RN) Pain Goal: 0 (Surajsanto Maria, RN) Datetime: 05/07/2016 15:02 Vital Signs Stage of : Recovery (Maine Leighann Nicole, RN) NBP Sys/Helena/Mean (mmHg): 117 (QS system process) : 66 (QS system process) : 86 (QS system process) Pulse: 73 (QS system process) Respirations: 18 (Maine Rivera, RN) Datetime: 05/07/2016 15:00 Vital Signs Stage of : Recovery (Surajsanto Maria, RN) Pain Pain Scale: 0 (Suraj Candace, RN) Pain Presence: None/Denies (Suraj Maria, RN) Pain Type: N/A (Suraj Maria, RN) Pain Goal: 0 (Suraj Maria, RN) Datetime: 05/07/2016 14:47 Vital Signs Stage of : Recovery (Maine Lozoyarosaura, RN) NBP Sys/Helena/Mean (mmHg): 118 (QS system process) : 63 (QS system process) : 86 (QS system process) Pulse: 69 (QS system process) Respirations: 18 (Maine Nesbittcharity Rivera, RN) Datetime: 05/07/2016 14:45 Vital Signs Stage of : [facility] Pulse: 73 ([facility] Respirations: 16 (Suraj Candace, ) Temperature (F): 97.8 (Suraj Maria, ) Temperature (C): 36.6 (QS system process) Temperature Route: Oral ([facility] Pain Pain Scale: 0 (Suraj Candace, ) Pain Presence: None/Denies (Suraj Candace, ) Pain Type: N/A (Suraj Candace, ) Pain Goal: 0 (Suraj Candace, ) Datetime: 05/07/2016 14:32 Vital Signs Stage of : Recovery (Maine Leighann Saleemlund, RN) NBP Sys/Helena/Mean (mmHg): 120 (QS system process) : 60 (QS system process) : 87 (QS system process) Pulse: 74 (QS system process) Respirations: 18 (Maine Leighann Roulund, RN) Datetime: 05/07/2016 14:30 Vital Signs Stage of : Recovery (Suraj Candace, RN) Pain Pain Scale: 1 (Maine Rivera, RN) Pain Presence: None/Denies (Maine Rivera, RN) Pain Type: N/A (Maine Leighann Rivera, RN) Pain Relief Measures: Comfort Measures (Maine Leighann Rivera, RN) Datetime: 05/07/2016 14:18 Vital Signs Stage of : Recovery (Maine Rivera, RN) NBP Sys/Helena/Mean (mmHg): 116 (QS system process) : 56 (QS system process) : 81 (QS system process) Pulse: 71 (QS system process) Respirations: 18 (Maine Mongelund, RN) Datetime: 05/07/2016 14:15 Vital Signs Stage of : Recovery (Suraj Candace, RN) Pain Pain Scale: 1 (Suraj Maria, RN) Pain Presence: None/Denies (Suraj Rocaford, RN) Pain Type: Sore in perineum area (Suraj Rocaford, RN) Pain Location: Perineum (Suraj Rocaford, RN) Pain Goal: 0 (Suraj Rocaford, RN) Pain Relief Measures: Comfort Measures (Suraj Maria, RN) Datetime: 05/07/2016 14:02 NBP Sys/Helena/Mean (mmHg): 135 (QS system process) : 60 (QS system process) : 87 (QS system process) Pulse: 74 (QS system process) Datetime: 05/07/2016 14:00 Vital Signs Stage of : (Suraj Candace, ) Assessment A Monitor Mode: External US ([facility], ) FHR Baseline Rate : 130 ([facility], ) Variability: Moderate 6-25 bpm ([facility], ) Accelerations: 15X15 ([facility], ) Decelerations: None ([facility], ) Pain Pain Scale: 1 ([facility], ) Pain Presence: None/Denies ([facility], RN) Pain Type: Cramping ([facility], RN) Pain Location: Perineum ([facility], RN) Pain Goal: 0 ([facility], ) Pain Relief Measures: Comfort Measures ([facility], ) Datetime: 05/07/2016 13:52 Vital Signs Stage of : Labor (Maine Rivera RN) Stage 2 Pushing: Coached on Pushing; Urge to Push (Maine Rivera RN) Pushing Position: Pushing with Contractions (Maine Rivera RN) Pushing Progress: Descent with Pushing; with Pushing; Pushing Effectively with Contractions (Maine Rivera RN) Stage 2 Comments: OF VIABLE FEMALE @1352. APGARS 9/9. SEE DELIVERY SUMMARY. (Maine Leighann Roulund, RN) Communication Communication: RN at Bedside; RN Reviewed Strip; Provider at Bedside (Maine Rivera, RN) Datetime: 05/07/2016 13:51 Vaginal Exam Dilatation (cm): 10.0 (Suraj Maria, RN) Effacement (%): 100 (Suraj Maria RN) Station: 2 (Suraj Maria, RN) Exam by: Eric, H (Suraj Maria RN) Communication Communication: RN at Bedside; Provider at Bedside (Suraj Maria RN) Communication Comments: PT began pushing (Suraj Maria, MILLER) Datetime: 05/07/2016 13:48 Vital Signs Stage of : Labor (Suraj Maria RN) NBP Sys/Helena/Mean (mmHg): 135 (QS system process) : 78 (QS system process) : 102 (QS system process) Pulse: 72 (QS system process) Respirations: 18 (Suraj Maria RN) LaborFlag: Labor (QS system process) Datetime: 05/07/2016 13:45 Uterine Activity Monitor Mode: External (Suraj Candace, RN) Frequency (min): 1.5-2 (Suraj Maria, RN) Quality: Mild/Moderate (Suraj Candace, RN) Duration (sec): 50-90 (Suraj Candace, RN) Resting Tone (Palpate): Relaxed (Suraj Maria, RN) Assessment A Monitor Mode: External US (Suraj Maria, RN) FHR Baseline Rate : 125 (Suraj Maria, RN) Variability: Moderate 6-25 bpm (Suraj Maria, RN) Accelerations: 15X15 (Suraj Maria, RN) Decelerations: None (Suraj Candace, RN) Datetime: 05/07/2016 13:32 Vital Signs Stage of : Labor (Suraj Maria, RN) NBP Sys/Helena/Mean (mmHg): 122 (QS system process) : 70 (QS system process) : 90 (QS system process) Pulse: 50 (QS system process) Respirations: 18 (Suraj Maria, RN) LaborFlag: Labor (QS system process) Datetime: 05/07/2016 13:29 Assessment A Monitor Mode: External US (Suraj Candace, RN) FHR Baseline Rate : 125 (Suraj Candace, RN) Variability: Moderate 6-25 bpm (Suraj Candace, RN) Accelerations: 10X10 (Suraj Candace, RN) Decelerations: None (Suraj Candace, RN) Patient Position/Activity: Left Lateral; Peanut Ball (Suraj Maria, RN) Datetime: 05/07/2016 13:17 Vital Signs Stage of : Labor (Suraj Maria RN) NBP Sys/Helena/Mean (mmHg): 133 (QS system process) : 63 (QS system process) : 88 (QS system process) Pulse: 58 (QS system process) Respirations: 18 (Suraj Maria, MILLER) LaborFlag: Labor (QS system process) Datetime: 05/07/2016 13:15 Uterine Activity Monitor Mode: External (Suraj Maria, MILLER) Frequency (min): 3-5 (Suraj Maria RN) Quality: Mild/Moderate (Suraj Maria RN) Duration (sec): 70-110 (Suraj Maria RN) Resting Tone (Palpate): Relaxed (Suraj Maria RN) Assessment A Monitor Mode: External US (Suraj Rocaford, RN) FHR Baseline Rate : 125 (Suraj Candace, RN) Variability: Minimal - Undetectable to <=5 bpm (Suraj Candace, RN) Accelerations: None (Suraj Candace, RN) Decelerations: None (Suraj Rocaford, RN) Datetime: 05/07/2016 13:02 NBP Sys/Helena/Mean (mmHg): 103 (QS system process) : 56 (QS system process) : 75 (QS system process) Pulse: 62 (QS system process) LaborFlag: Labor (QS system process) Datetime: 05/07/2016 13:00 Vital Signs Stage of : Labor (Suraj Candace, RN) Uterine Activity Monitor Mode: External (Suraj Candace, RN) Frequency (min): 3-5 (Suraj Candace, RN) Quality: Mild/Moderate (Suraj Candace, RN) Duration (sec): 60-110 (Suraj Candace, RN) Resting Tone (Palpate): Relaxed (Suraj Candace, RN) Assessment A Monitor Mode: External US (Suraj Maria, RN) FHR Baseline Rate : 125 (Suraj Maria, RN) Variability: Moderate 6-25 bpm (Suraj Candace, RN) Accelerations: 10X10 (Suraj Rocaford, RN) Decelerations: None (Suraj Rocaford, RN) Pain Pain Scale: 0 (Suraj Maria, RN) Pain Presence: None/Denies (Suraj Candace, RN) Pain Type: N/A (Surajsanto Maria, RN) Pain Relief Measures: Comfort Measures (Surajsanto Maria, RN) Pain Coping: Talking Through Contractions (Suraj Candace, RN) Medications Antibiotics: Penicillin IV (Units) @ [id number] (Suraj Candace, RN) LaborFlag: Labor (QS system process) Datetime: 05/07/2016 12:49 Vital Signs Stage of : Labor (Suraj Maria, RN) NBP Sys/Helena/Mean (mmHg): 111 (QS system process) : 58 (QS system process) : 81 (QS system process) Pulse: 55 (QS system process) Respirations: 18 (Suraj Maria, RN) LaborFlag: Labor (QS system process) Datetime: 05/07/2016 12:45 Uterine Activity Monitor Mode: External (Suraj Candace, RN) Frequency (min): Irregular (Suraj Candace, RN) Quality: Mild/Moderate (Suraj Candace, RN) Resting Tone (Palpate): Relaxed (Suraj Candace, RN) Assessment A Monitor Mode: External US (Suraj Candace, RN) FHR Baseline Rate : 125 (Suraj Candace, RN) Variability: Moderate 6-25 bpm (Suraj Candace, RN) Accelerations: 15X15 (Suraj Candace, RN) Decelerations: None (Suraj Candace, RN) Datetime: 05/07/2016 12:38 Patient Position/Activity: High Fowlers; Tailors (Suraj Candace, RN) I/O Interventions: Clear Liquids Given (Suraj Candace, RN) Datetime: 05/07/2016 12:33 Vital Signs Stage of : Labor (Maine Rivera RN) Vaginal Exam Dilatation (cm): 8.0 (Maine Rivera RN) Effacement (%): 100 (Maine Rivera RN) Station: 1 (Maine Rivera RN) Exam by: Santo REYES CNM (Maine Rivera RN) Membrane Status: Ruptured (Maine Rivera RN) Membranes Rupture Method: Artificial (Maine Rivera RN) Amniotic Fluid Color: Clear (Maine Rivera RN) Amniotic Fluid Amount: Moderate (Maine Leighann Roulund, RN) Vaginal Bleeding: Small (Maine Rivera, RN) Cervix, Consistency: Soft (Maine Rivera, RN) Cervix, Position: Anterior (Maine Rivera, MILLER) Provider Reviewed Strip: Yes (Maine Leighann Rivera, RN) Communication Communication: RN at Bedside; RN Reviewed Strip; Provider at Bedside (Maine Rivera, MILLER) Communication Comments: CNM @ BS (Maine Rivera, MILLER) Datetime: 05/07/2016 12:32 Vital Signs Stage of : Labor (Suraj Maria RN) NBP Sys/Helena/Mean (mmHg): 99 (QS system process) : 61 (QS system process) : 74 (QS system process) Respirations: 18 (Suraj Maria RN) LaborFlag: Labor (QS system process) Datetime: 05/07/2016 12:30 Vital Signs Stage of : Labor (Maine Rivera RN) Respirations: 18 (Maine Rivera RN) Temperature (F): 98.0 (Maine Rivera RN) Temperature (C): 36.7 (QS system process) Uterine Activity Monitor Mode: External (Maine Leighann Roulund, RN) Frequency (min): IRREG (Maine Leighann Roulund, RN) Quality: Moderate (Maine Leighann Roulund, RN) Duration (sec): 60-90 (Maine Leighann Roulund, RN) Resting Tone (Palpate): Relaxed (Maine Leighann Roulund, RN) Assessment A Monitor Mode: External US (Maine Leighann Roulund, RN) FHR Baseline Rate : 120 (Maine Leighann Roulund, RN) FHR Baseline Changes: No Baseline Change (Maine Leighann Roulund, RN) Variability: Moderate 6-25 bpm (Maine Leighann Roulund, RN) Accelerations: 15X15 (Maine Leighann Roulund, RN) Decelerations: None (Maine Leighann Roulund, RN) Pain Pain Scale: 0 (Maine Leighann Roulund, RN) Pain Presence: None/Denies (Maine Rivera RN) Pain Type: N/A (Maine Rivera RN) Pain Relief Measures: Comfort Measures (Maine Rivera RN) Pain Coping: Talking Through Contractions (Maine Rivera RN) Patient Care IV/Blood Work: IV Infusing per Order (Maine Rivera RN) Patient Position/Activity: Left Extreme; Peanut Ball (Maine Rivera RN) Comfort Measures: Family Support (Maine Rivera RN) Communication Communication: RN at Bedside; RN Reviewed Strip (Maine Rivera RN) LaborFlag: Labor (QS system process) Datetime: 05/07/2016 12:17 Vital Signs Stage of : Labor (Suraj Maria, MILLER) NBP Sys/Helena/Mean (mmHg): 102 (QS system process) : 59 (QS system process) : 78 (QS system process) Pulse: 52 (QS system process) Respirations: 18 (Suraj Maria, MILLER) LaborFlag: Labor (QS system process) Datetime: 05/07/2016 12:15 Temperature (F): 98.0 (Suraj Maria RN) Temperature (C): 36.7 (QS system process) Temperature Route: Oral (Suraj Maria, RN) Uterine Activity Monitor Mode: External (Suraj Candace, RN) Frequency (min): Irregular (Suraj Candace, RN) Quality: Mild/Moderate (Suraj Candace, RN) Resting Tone (Palpate): Relaxed (Suraj Candace, RN) Assessment A Monitor Mode: External US (Suraj Candace, RN) FHR Baseline Rate : 125 (Suraj Candace, RN) Variability: Moderate 6-25 bpm (Suraj Candace, RN) Accelerations: 15X15 (Suraj Candace, RN) Decelerations: None (Suraj Candace, RN) Patient Position/Activity: HOB Lowered; Left Lateral; Peanut Ball (Suraj Candace, RN) LaborFlag: Labor (QS system process) Datetime: 05/07/2016 12:02 Vital Signs Stage of : Labor (Suraj Maria, RN) NBP Sys/Helena/Mean (mmHg): 96 (QS system process) : 51 (QS system process) : 67 (QS system process) Pulse: 61 (QS system process) Respirations: 18 (Surajsanto Maria, RN) LaborFlag: Labor (QS system process) Datetime: 05/07/2016 12:00 Vital Signs Stage of : Labor (Suraj Candace, RN) Uterine Activity Monitor Mode: External (Suraj Candace, RN) Frequency (min): Irregular (Suraj Candace, RN) Quality: Mild/Moderate (Suraj Candace, RN) Resting Tone (Palpate): Relaxed (Suraj Candace, RN) Assessment A Monitor Mode: External US (Suraj Candace, RN) FHR Baseline Rate : 120 (Suraj Candace, RN) Variability: Moderate 6-25 bpm (Suraj Candace, RN) Accelerations: 15X15 (Suraj Candace, RN) Decelerations: None (Suraj Candace, RN) Pain Pain Scale: 0 (Suraj Maria RN) Pain Presence: None/Denies (Suraj Maria RN) Pain Type: N/A (Suraj Maria RN) Pain Relief Measures: Comfort Measures (Suraj Maria, MILLER) Pain Coping: Talking Through Contractions (Suraj Maria RN) Pain Assessment Comments: 1 (Suraj Maria RN) LaborFlag: Labor (QS system process) Datetime: 05/07/2016 11:47 NBP Sys/Helena/Mean (mmHg): 96 (QS system process) : 54 (QS system process) : 72 (QS system process) Pulse: 71 (QS system process) LaborFlag: Labor (QS system process) Datetime: 05/07/2016 11:45 Uterine Activity Monitor Mode: External (Suraj Candace, RN) Frequency (min): Irregular (Suraj Candace, RN) Quality: Mild (Suraj Candace, RN) Resting Tone (Palpate): Relaxed (Suraj Candace, RN) Assessment A Monitor Mode: External US (Suraj Candace, RN) FHR Baseline Rate : 120 (Suraj Candace, RN) Variability: Moderate 6-25 bpm (Suraj Candace, RN) Accelerations: 15X15 (Suraj Candace, RN) Decelerations: None (Suraj Candace, RN) Datetime: 05/07/2016 11:39 Respirations: 16 (Suraj Candace, RN) Pain Pain Scale: 0 (Suraj Maria RN) Pain Presence: None/Denies (Suraj Maria RN) Pain Type: N/A (uSraj Maria RN) Pain Goal: 0 (Suraj Maria RN) Pain Relief Measures: Epidural Given; Comfort Measures (Suraj Maria RN) Patient Position/Activity: Right Lateral; Peanut Ball (Suraj Maria RN) Comfort Measures: Breathing/Relaxation; Family Support (Suraj Maria RN) LaborFlag: Labor (QS system process) Datetime: 05/07/2016 11:32 NBP Sys/Helena/Mean (mmHg): 108 (QS system process) : 59 (QS system process) : 78 (QS system process) Pulse: 67 (QS system process) LaborFlag: Labor (QS system process) Datetime: 05/07/2016 11:30 Uterine Activity Monitor Mode: External (Suraj Candace, RN) Frequency (min): 6-8 (Suraj Candace, RN) Quality: Mild (Suraj Candace, RN) Duration (sec): 70-80 (Suraj Candace, RN) Resting Tone (Palpate): Relaxed (Suraj Candace, RN) Assessment A Monitor Mode: External US (Suraj Candace, RN) FHR Baseline Rate : 120 (Suraj Candace, RN) Variability: Moderate 6-25 bpm (Suraj Candace, RN) Accelerations: 15X15 (Suraj Candace, RN) Decelerations: None (Suraj Candace, RN) Datetime: 05/07/2016 11:18 NBP Sys/Helena/Mean (mmHg): 110 (QS system process) : 58 (QS system process) : 79 (QS system process) Pulse: 69 (QS system process) LaborFlag: Labor (QS system process) Datetime: 05/07/2016 11:15 Uterine Activity Monitor Mode: External (Suraj Maria RN) Frequency (min): 6-7 (Suraj Maria RN) Quality: Mild (Suraj Maria RN) Duration (sec): 80-100 (Suraj Maria RN) Resting Tone (Palpate): Relaxed (Suraj Candace, RN) Assessment A Monitor Mode: External US (Surajsanto Maria, RN) FHR Baseline Rate : 125 (Surajsanto Maria, RN) Variability: Moderate 6-25 bpm (Suraj Maria, RN) Accelerations: 15X15 (Surajsanto Maria, RN) Decelerations: None (Suraj Rocaford, RN) Datetime: 05/07/2016 11:04 NBP Sys/Helena/Mean (mmHg): 110 (QS system process) : 58 (QS system process) : 78 (QS system process) Pulse: 67 (QS system process) LaborFlag: Labor (QS system process) Datetime: 05/07/2016 11:00 Vital Signs Stage of : Labor (Suraj Maria, RN) Assessment A Monitor Mode: External US (Suraj Maria RN) FHR Baseline Rate : 125 (Suraj Maria, RN) Variability: Moderate 6-25 bpm (Suraj Maria, RN) Accelerations: 10X10 (Suraj Maria RN) Decelerations: None (Suraj Maria, RN) Pain Pain Scale: 4 (Suraj Maria, MILLER) Pain Presence: Intermittent (Suraj Maria, MILLER) Pain Type: Contraction (Suraj Maria RN) Pain Location: Abdomen (Suraj Maria, MILLER) Pain Relief Measures: Comfort Measures (Suraj Maria, MILLER) Pain Coping: Breathing Through Contractions (Suraj Maria, MILLER) LaborFlag: Labor (QS system process) Datetime: 05/07/2016 10:47 NBP Sys/Helena/Mean (mmHg): 115 (QS system process) : 62 (QS system process) : 80 (QS system process) Pulse: 75 (QS system process) LaborFlag: Labor (QS system process) Datetime: 05/07/2016 10:45 Uterine Activity Monitor Mode: External (Suraj Candace, RN) Frequency (min): Irregular (Suraj Candace, RN) Quality: Mild (Suraj Candace, RN) Duration (sec): 70 (Suraj Candace, RN) Datetime: 05/07/2016 10:44 Assessment A Monitor Mode: External US (Suraj Candace, RN) FHR Baseline Rate : 120 (Suraj Candace, RN) Variability: Moderate 6-25 bpm (Suraj Candace, RN) Accelerations: 15X15 (Suraj Candace, RN) Decelerations: None (Suraj Candace, RN) Datetime: 05/07/2016 10:42 NBP Sys/Helena/Mean (mmHg): 116 (QS system process) : 62 (QS system process) : 81 (QS system process) Pulse: 64 (QS system process) LaborFlag: Labor (QS system process) Datetime: 05/07/2016 10:36 NBP Sys/Helena/Mean (mmHg): 118 (QS system process) : 60 (QS system process) : 83 (QS system process) Pulse: 64 (QS system process) LaborFlag: Labor (QS system process) Datetime: 05/07/2016 10:35 NBP Sys/Helena/Mean (mmHg): 120 (QS system process) : 62 (QS system process) : 83 (QS system process) Pulse: 63 (QS system process) LaborFlag: Labor (QS system process) Datetime: 05/07/2016 10:34 NBP Sys/Helena/Mean (mmHg): 125 (QS system process) : 62 (QS system process) : 86 (QS system process) Pulse: 75 (QS system process) I/O Interventions: Lopez Cath Inserted (Suraj Maria RN) LaborFlag: Labor (QS system process) Datetime: 05/07/2016 10:33 NBP Sys/Helena/Mean (mmHg): 119 (QS system process) : 59 (QS system process) : 82 (QS system process) Pulse: 76 (QS system process) LaborFlag: Labor (QS system process) Datetime: 05/07/2016 10:32 NBP Sys/Helena/Mean (mmHg): 118 (QS system process) : 60 (QS system process) : 82 (QS system process) : 84 (QS system process) Pulse: 65 (QS system process) Pulse: 73 (QS system process) Procedure TIME OUT Procedure Type: Epidural (Suraj Maria RN) Epidural Procedure Other: Pump Started (Suraj Maria RN) Anesthesia Level Check: T10- Umbilicus (Suraj Maria RN) LaborFlag: Labor (QS system process) Datetime: 05/07/2016 10:31 NBP Sys/Helena/Mean (mmHg): 125 (QS system process) : 60 (QS system process) : 87 (QS system process) Pulse: 69 (QS system process) LaborFlag: Labor (QS system process) Datetime: 05/07/2016 10:30 Assessment A Monitor Mode: External US (Suraj Maria, RN) FHR Baseline Rate : 125 (Suraj Maria, RN) Variability: Moderate 6-25 bpm (Suraj Candace, RN) Accelerations: 15X15 (Suraj Rocaford, RN) Datetime: 05/07/2016 10:29 NBP Sys/Helena/Mean (mmHg): 133 (QS system process) : 72 (QS system process) : 93 (QS system process) Pulse: 78 (QS system process) Contraction Comments: Difficult to determine pts contraction pattern due to patients positioning for epidural (Suraj Maria RN) LaborFlag: Labor (QS system process) Datetime: 05/07/2016 10:28 NBP Sys/Helena/Mean (mmHg): 123 (QS system process) : 67 (QS system process) : 89 (QS system process) Pulse: 75 (QS system process) LaborFlag: Labor (QS system process) Datetime: 05/07/2016 10:27 NBP Sys/[place]ena/Mean (mmHg): 137 (QS system process) : 77 (QS system process) : 101 (QS system process) Pulse: 64 (QS system process) LaborFlag: Labor (QS system process) Datetime: 05/07/2016 10:26 NBP Sys/Helena/Mean (mmHg): 138 (QS system process) : 76 (QS system process) : 102 (QS system process) Pulse: 57 (QS system process) Epidural Procedure: Loading Dose (Suraj Rocaford, RN) LaborFlag: Labor (QS system process) Datetime: 05/07/2016 10:25 Epidural Procedure: Cath Placed (Suraj Rocaford, RN) Epidural Procedure: Test Dose (Suraj Rocaford, RN) Datetime: 05/07/2016 10:18 Procedure TIME OUT Procedure Type: Epidural (Suraj Maria, RN) Procedure Verify: Correct Patient Identity; Agreement on Procedure to be Done; Correct Patient Position; Relevant Images and Results are Properly Labeled and Displayed (Suraj Maria, MILLER) Anesthesia Anesthesia Plans: Epidural (Suraj Maria, RN) Epidural Positioning: Sitting (Suraj Maria, RN) Anesthesia Comments: Dr. Juarez at bedside (Suraj Maria, RN) Datetime: 05/07/2016 10:04 NBP Sys/Helena/Mean (mmHg): 106 (QS system process) : 56 (QS system process) : 78 (QS system process) Pulse: 64 (QS system process) LaborFlag: Labor (QS system process) Datetime: 05/07/2016 10:00 Vital Signs Stage of : Labor (Suraj Maria, RN) Uterine Activity Monitor Mode: External (Suraj Maria RN) Frequency (min): 7 (Suraj Maria RN) Quality: Mild (Suraj aMria RN) Duration (sec): 60-110 (Suraj Maria RN) Resting Tone (Palpate): Relaxed (Suraj Maria RN) Assessment A Monitor Mode: External US (Suraj Candace, RN) FHR Baseline Rate : 125 (Suraj Candace, RN) Variability: Moderate 6-25 bpm (Suraj Candace, RN) Accelerations: 15X15 (Suraj Candace, RN) Decelerations: None (Suraj Candace, RN) Pain Pain Scale: 4 (Suraj Candace, RN) Pain Presence: Intermittent (Suraj Candace, RN) Pain Type: Contraction (Suraj Candace, RN) Pain Location: Abdomen (Suraj Candace, RN) Pain Relief Measures: Comfort Measures (Suraj Candace, RN) Pain Coping: Breathing Through Contractions (Suraj Candace, ) Procedure TIME OUT Procedure Type: Epidural (Suraj Maria RN) Procedure Verify: Correct Patient Identity; Agreement on Procedure to be Done; Relevant Images and Results are Properly Labeled and Displayed (Suraj Maria RN) LaborFlag: Labor (QS system process) Datetime: 05/07/2016 09:30 Uterine Activity Monitor Mode: External (Suraj Maria RN) Frequency (min): 2-6 (Suraj Maria RN) Quality: Mild (Suraj Maria RN) Duration (sec): 70-130 (Suraj Maria RN) Resting Tone (Palpate): Relaxed (Suraj Maria RN) Assessment A Monitor Mode: External US (Surajsanto Maria, RN) FHR Baseline Rate : 135 (Surajsanto Maria, RN) Variability: Moderate 6-25 bpm (Surajsanto Maria, RN) Accelerations: 15X15 (Suraj Candace, RN) Decelerations: None (Suraj Rocaford, RN) Datetime: 05/07/2016 09:00 Vital Signs Stage of : Labor (Suraj Rocaford, RN) Uterine Activity Monitor Mode: External; Palpation (Maine Rivera RN) Frequency (min): Irregular and mild (Suraj Maria RN) Quality: Moderate (Maine Rivera RN) Duration (sec): IRREG (Maine Rivera RN) Resting Tone (Palpate): Relaxed (Suraj Maria RN) Assessment A Monitor Mode: External US (Suraj Maria RN) Pain Pain Scale: 4 (Suraj Maria RN) Pain Presence: Intermittent (Suraj Maria RN) Pain Type: Contraction (Suraj Maria RN) Pain Location: Abdomen; Back (Suraj Maria RN) Pain Goal: 1 (Suraj Maria RN) Pain Relief Measures: Comfort Measures (Maine Rivera RN) Pain Coping: Breathing Through Contractions; Requesting Pain Medication or Epidural (Maine Rivera RN) Vaginal Exam Dilatation (cm): 6.5 (Maine Rivera RN) Effacement (%): 90 (Suraj Maria RN) Station: 0 (Suraj Maria RN) Exam by: Santo REYES CNM (Maine Rivera RN) Membrane Status: Intact (Suraj Maria RN) Vaginal Bleeding: Scant (Suraj Maria RN) Avery's Score Dilatation (cm): 5 or greater cms (Maine Rivera RN) Effacement: >80_ effaced (Maine Rivera RN) Station: minus 1 to 0 (Maine Rivera RN) Consistency: Soft (Maine Rivera RN) Position: Midposition (Maine Rivera RN) Total Avery's Score: 11 (QS system process) : 9-14 = Usually no failure for induction (QS system process) Maternal Assessment Level of Consciousness: Fully Conscious (Suraj Maria, MILLER) Headache: Denies (Suraj Maria, MILLER) Breath Sounds, Left: Clear and Equal (Maine Rivera, MILLER) Breath Sounds, Right: Clear and Equal (Maine Rivera, MILLER) Nausea/Vomiting: Denies (Suraj Maria, MILLER) RUQ Epigastric Pain: Denies (Suraj Candace, MILLER) Medications Antibiotics: Penicillin IV (Units) @ (Annotations: [id number] units) (Suraj Maria, RN) Patient Care IV/Blood Work: IV Started; IV Bolus Started; New IV Bag Hung (Maine Rivera RN) Patient Position/Activity: HOB Lowered; Right Lateral (Suraj Maria RN) Comfort Measures: Family Support (Maine Rivera RN) I/O Interventions: Clear Liquids Given; Up to BR (Maine Rivera RN) Procedure TIME OUT Procedure Type: Epidural (Suraj Maria RN) Procedure Verify: Correct Patient Identity; Agreement on Procedure to be Done; Relevant Images and Results are Properly Labeled and Displayed (Suraj Maria RN) Teaching Instructional Method: Verbal; Patient Instructed; Family/Support Person Instructed; Verbalized Understanding (Maine Rivera RN) Plan of Care: Plan of Care Discussed; Labor (Maine Rivera RN) Unit Routine: [place] to Room; Call Cramer; Bed; Visiting Policy; Phone/Cell Phone Use; Unit Personnel; Handwashing; Monitoring; Safety/Fall Risk Prevention; Diet/Nutrition Services; Bathroom Privileges (Maine Rivera RN) Labor/Induction: Labor Stages (Maine Rivera RN) Pain Management: Epidural; Pain Scale/Goals; Comfort Measures (Maine Rivera RN) Medications: Antibiotics (Maine Rivera RN) Related: Common Discomforts of ; Maternal Physical Changes; Maternal Emotional Changes; Nutrition; Hydration; Activity and Rest (Maine Rivera RN) LaborFlag: Labor (QS system process) Datetime: 05/07/2016 08:56 NBP Sys/Helena/Mean (mmHg): 107 (QS system process) : 69 (QS system process) : 80 (QS system process) Pulse: 104 (QS system process) Datetime: 05/07/2016 08:45 Vaginal Exam Dilatation (cm): 6.5 (Suraj Maria RN) Effacement (%): 90 (Suraj Maria RN) Station: 0 (Suraj Maria RN) Exam by: Radha Reyes CNM (Suraj Maria RN) Vaginal Bleeding: None (Suraj Maria RN) Cervix, Consistency: Soft (Suraj Maria RN) Cervix, Position: Midposition (Suraj Maria RN)
[2016-05-07] MEDS: IBUPROFEN 800 MG TABLET PO SCH (21:01)
[2016-05-08] MEDS: IBUPROFEN 800 MG TABLET PO SCH ×2 (05:26→14:47)
--- NOTE | 2016-05-08 06:01 | L&D General Admission ---
General Admit Datetime Report Generated by CPN: 05/08/2016 06:00 INFORMATION Patient Age: 21 (05/07/2016 08:24:QS system process) EDC: 05/06/2016 00:00 (05/07/2016 08:59:Donna Loya RNC) : 4 (05/07/2016 08:59:Donna Loya RNC) Para: 3 (05/07/2016 08:59:Donna Loya RNC) Term: 3 (05/07/2016 08:59:Donna Loya RNC) : 0 (05/07/2016 08:59:Donna Loya RNC) Spontaneous Abortions: 0 (05/07/2016 08:59:Donna Loya RNC) Livin (05/07/2016 08:59:Donna Loya RNC) Cesareans: 0 (05/07/2016 08:59:Donna Loya RNC) VBACs: 0 (05/07/2016 08:59:Donna Loya RNC) Ectopic: 0 (05/07/2016 08:59:Donna Loya RNC) Multiple [facility]: [facility] Baby, Number in Womb: 1 (05/07/2016 08:59:[facility], [facility]) CARE Primary Adjunct Communications Faculty Member: [employer] ([facility]/07/2016 08:[facility] Month of 1st Visit: September (05/07/2016 08:59:[facility], [facility]) Adequate Care: Yes (05/07/2016 08:[facility] Prepregnancy Weight (lb): 160 (05/07/2016 08:59:[facility], [facility]) Prepregnancy Weight (kg): 72.7 (05/07/2016 08:59:QS system process) Height (in): 63 (05/07/2016 18:55:QS system process) ALLERGIES Medication Allergy: No (05/07/2016 08:59:Donna Loya, [facility]) Medication Allergies: No Known Allergies (05/07/2016) (05/07/2016 08:56:QS system process) Latex Allergy: No Latex Allergies (05/07/2016 08:59:FAIZA Reina) Food Allergies: None (05/07/2016 08:59:Suraj Maria RN) Environmental Allergies: None (05/07/2016 08:59:Suraj Maria RN) COMMUNICATION Primary Language: Kittitian (05/07/2016 08:59:Donna Loya [facility]) Medical Tx Preferred Language: Kittitian (05/07/2016 08:59:Donna Loya [facility]) Communication Barrier(s): None (05/07/2016 08:59:Donna Loya, RN) DEMOGRAPHICS Address: [address] [place] [id number] (05/07/2016 08:24:QS system process) Zipcode: [address] (05/07/2016 08:24:QS system process) Home (05/07/2016 08:24:QS system process) SSN: [id number] (05/07/2016 08:24:QS system process) Next of Kin Name: GEN COTTRELL (05/07/2016 08:24:QS system process) Next of Kin (05/07/2016 08:24:QS system process) Next of Kin Relationship: OR (05/07/2016 08:24:QS system process) Date of : 1995 (05/07/2016 08:24:QS system process) Marital Status: (05/07/2016 13:00:QS system process) Sex: Female (05/07/2016 08:24:QS system process) Occupation: Other (05/07/2016 08:59:Suraj Maria RN) 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 [id number] (05/07/2016 08:59:Donna Camp, RNC) Average Cigarettes Smoked: 5 - 10 per day (05/07/2016 08:59:Suraj Maria RN) Advised to Stop Smoking: Yes (05/07/2016 08:59:Suraj Maria RN) Marijuana: Yes (05/07/2016 08:59:Suraj Maria RN) Marijuana Comments: As a teenager (05/07/2016 08:59:Suraj Maria RN) Cocaine: No (05/07/2016 08:59:Suraj Maria RN) Other Illicit Drugs: No (05/07/2016 08:59:Suraj Maria RN) VACCINE HISTORY Influenza Vaccine: Uncertain (05/07/2016 08:59:Suraj Maria RN) Pneumococcal Vaccine: No (05/07/2016 08:59:Suraj Maria RN) Tetanus Vaccine: No (05/07/2016 08:59:Suraj Maria RN) Tdap Vaccine: Uncertain (05/07/2016 08:59:Suraj Maria RN) Hepatitis B Vaccine: Uncertain (05/07/2016 08:59:Suraj Maria RN) Director Of Community Center: [facility] (05/07/2016 08:59:Suraj Maria RN) Feeding Preference: Both (05/07/2016 08:59:Maine Rivera RN) Benefit of Breast Feed Discussed: Yes (05/07/2016 08:59:Suraj Maria RN) Circumcision: N/A (05/07/2016 08:59:Suraj Maria RN) Classes Attended: No (05/07/2016 08:59:Suraj Maria RN) Tubal Ligation: No (05/07/2016 08:59:FAIZA Reina) Tubal Authorization Signed: N/A (05/07/2016 08:59:FAIZA Reina) Consent: N/A (05/07/2016 08:59:FAIZA Reina) Consent Signed: N/A (05/07/2016 08:59:FAIZA Reina) Pain Management Plans: Epidural (05/07/2016 08:59:Suraj Maria RN) Other Labor and Delivery Plans: Withold cord clamping (05/07/2016 08:59:Suraj Maria RN) Support Person: Gen Cottrell (05/07/2016 08:59:Suraj Maria RN) Support Person Relationship: Significant Other (05/07/2016 08:59:Suraj Maria RN) Cultural/Spritual Practice: No (05/07/2016 08:59:Suraj Maria RN) Spir/Cult Dietary Needs: No (05/07/2016 08:59:Suraj Maria RN) LIVING SITUATION/DISCHARGE PLAN Living Arrangements: House (05/07/2016 08:59:Suraj Maria RN) Adequate Access to:: Electric; Heat; Refrigeration; Plumbing/Running water; Phone; Transportation (05/07/2016 08:59:Suraj Maria RN) WIC Program: No (05/07/2016 08:59:Suraj Maria RN) Discharge Dramatic Teacher Person: Gen Cottrell (05/07/2016 08:59:Suraj Maria RN) Person to Help after Discharge: Gen Cottrell (05/07/2016 08:59:Suraj Maria RN) Currently Using Commun Resources: Yes (05/07/2016 08:59:Suraj Maria RN) Specify Current Resource Used: Medicaid (05/07/2016 08:59:Suraj Maria RN) Outside Agency/Cable Television Access Coordinator: No (05/07/2016 08:59:Suraj Maria RN) Car Seat for Discharge: Yes (05/07/2016 08:59:Suraj Maria RN) Adoption Requested: No (05/07/2016 08:59:Suraj Maria RN) Pt Contact w/infant Post : N/A (05/07/2016 08:59:Suraj Maria RN) LABS Blood Type: A Positive (05/07/2016 08:59:FAIZA Reina) Antibody Screen: negative (05/07/2016 08:59:FAIZA Reina) Hemoglobin: 10.2 L (05/07/2016 09:09:QS system process) Hematocrit: 29.7 L (05/07/2016 09:09:QS system process) MCV: 85 (05/07/2016 09:09:QS system process) Group Beta Strep: positive (05/07/2016 08:59:[facility]) Gonorrhea: Negative (05/07/2016 08:59:[facility]) Chlamydia: Negative (05/07/2016 08:59:[facility]) RPR/VDRL: Nonreactive (05/07/2016 08:59:[facility]) HIV Exposure Test: Negative (05/07/2016 08:59:Maine Rivera RN) Hepatitis B: Negative (05/07/2016 08:59:[facility]) Rubella: Immune (05/07/2016 08:59:[facility]) OB/PREVIOUS HISTORY BCP at Conception: No (05/07/2016 08:59:Suraj Maria RN) Previous Procedures: Ultrasound (05/07/2016 08:59:Suraj Maria RN) Current Procedures: Ultrasound; NST (05/07/2016 08:59:Suraj Maria RN) History of Previous : No (05/07/2016 08:59:Suraj Maria RN) History of Gestational Diabetes: No (05/07/2016 08:59:Suraj Maria RN) History of PIH: No (05/07/2016 08:59:Suraj Maria RN) History of Incompetent Cervix: No (05/07/2016 08:59:Suraj Maria RN) History of Placenta Previa/Abrup: No (05/07/2016 08:59:Suraj Maria RN) History of Macrosomia: No (05/07/2016 08:59:Suraj Maria RN) History of IUGR: No (05/07/2016 08:59:Suraj Maria RN) History of Hemorrhage: No (05/07/2016 08:59:Suraj Maria RN) History of Loss/Stillborn: No (05/07/2016 08:59:Suraj Maria RN) History of : No (05/07/2016 08:59:Suraj Maria RN) History of D (Rh) Sensitization: No (05/07/2016 08:59:Suraj Maria RN) History Recurrent Loss/Stillborn: No (05/07/2016 08:59:Suraj Maria RN) History Depression/PP Depression: Yes (05/07/2016 08:59:Suraj Maria RN) History of Uterine Anomaly/SARA: No (05/07/2016 08:59:Suraj Maria RN) History of Infertility: No (05/07/2016 08:59:Suraj Maria RN) History of ART Treatment: No (05/07/2016 08:59:Suraj Maria RN) History of SARA: No (05/07/2016 08:59:Suraj Maria RN) Comments 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 (05/07/2016 08:59:Maine Rivera RN) MEDICAL HISTORY Med Hx Diabetes: No (05/07/2016 08:59:Suraj Maria RN) Med Hx Hypertension: No (05/07/2016 08:59:Suraj Maria RN) Med Hx Heart Disease: No (05/07/2016 08:59:Suraj Maria RN) Med Hx Autoimmune Disorder: No (05/07/2016 08:59:Suraj Maria RN) Med Hx Kidney Disease/UTI: No (05/07/2016 08:59:Suraj Maria RN) Med Hx Neurologic/Epilepsy: No (05/07/2016 08:59:Suraj Maria RN) Med Hx Psychiatric Disorders: No (05/07/2016 08:59:Suraj Maria RN) Med Hx Hepatitis/Liver Disease: No (05/07/2016 08:59:Suraj Maria RN) Med Hx Varicosities/Phlebitis: No (05/07/2016 08:59:Suraj Maria RN) Med Hx Thyroid Dysfunction: No (05/07/2016 08:59:Suraj Maria RN) Med Hx Trauma/Violence: No (05/07/2016 08:59:Suraj Maria RN) Med Hx Blood Transfusion: No (05/07/2016 08:59:Suraj Maria RN) Med Hx Pulmonary (Asthma,TB): No (05/07/2016 08:59:Suraj Maria RN) Med Hx Breast: No (05/07/2016 08:59:Suraj Maria RN) Med Hx TRUCKSMITH Surgery: No (05/07/2016 08:59:Suraj Maria RN) Med Hx Hospitalization/Surgery: Yes (05/07/2016 08:59:Maine Rivera RN) Med Hx Anesthetic Complications: No (05/07/2016 08:59:Suraj Maria RN) Med Hx Abnormal Pap Smear: No (05/07/2016 08:59:Suraj Maria RN) Other Medical Diseases: No (05/07/2016 08:59:Suraj Maria RN) Med Hx Significant Family Hx: No (05/07/2016 08:59:Suraj Maria RN) Details of Med/Surg Hx: CHILDBIRTH (05/07/2016 08:59:Maine Rivera RN) INFECTIOUS HISTORY Inf Hx Gonorrhea: No (05/07/2016 08:59:Suraj Maria RN) Inf Hx Chlamydia: No (05/07/2016 08:59:Suraj Maria RN) Inf Hx Syphilis: No (05/07/2016 08:59:Suraj Maria RN) Inf Hx HIV/AIDS: No (05/07/2016 08:59:Suraj Maria RN) Inf Hx Human Papilloma Virus: No (05/07/2016 08:59:Suraj Maria RN) Inf Hx Pt/Partner Genital Herpes: No (05/07/2016 08:59:Suraj Maria RN) Inf Hx Tuberculosis/Exposure: No (05/07/2016 08:59:Suraj Marai RN) Inf Hx Hepatitis B,C: No (05/07/2016 08:59:Suraj Maria RN) Inf Hx Rash or Viral Illness: No (05/07/2016 08:59:Suraj Maria RN) GENETIC HISTORY Gen Hx Age >=35 at DONNELL: No (05/07/2016 08:59:Suraj Maria RN) Gen Hx Thalassemia: No (05/07/2016 08:59:Suraj Maria RN) Gen Hx Congenital Heart Defect: No (05/07/2016 08:59:Suraj Maria RN) Gen Hx Neural Tube Defect: No (05/07/2016 08:59:Suraj Maria RN) Gen Hx Down's Syndrome: No (05/07/2016 08:59:Suraj Maria RN) Gen Hx Jerome-Sachs: No (05/07/2016 08:59:Suraj Maria RN) Gen Hx Frida: No (05/07/2016 08:59:Suraj Maria RN) Gen Hx Familial Dysautonomia: No (05/07/2016 08:59:Suraj Maria RN) Gen Hx Sickle Cell Disease/Trait: No (05/07/2016 08:59:Suraj Maria RN) Gen Hx Hemophilia/Blood Disorder: No (05/07/2016 08:59:Suraj Maria RN) Gen Hx Muscular Dystrophy: No (05/07/2016 08:59:Suraj Maria RN) Gen Hx Cystic Fibrosis: No (05/07/2016 08:59:Suraj Maria RN) Gen Hx Huntingtons Chorea: No (05/07/2016 08:59:Suraj Maria RN) Gen Hx Mental Retardation/Autism: No (05/07/2016 08:59:Suraj Maria RN) Gen Hx Tested for Fragile X: No (05/07/2016 08:59:Suraj Maria RN) Gen Hx Other Inher/Chromosomal: No (05/07/2016 08:59:Suraj Maria RN) Gen Hx Maternal Metabolic DO: No (05/07/2016 08:59:Suraj Maria RN) Gen Hx Pt Father or FOB Defect: No (05/07/2016 08:59:Suraj Maria RN) Gen Hx Other Genetic History: No (05/07/2016 08:59:Suraj Maria RN) Gen Hx Drugs/Meds since LMP: No (05/07/2016 08:59:Suraj Maria RN)
--- NOTE | 2016-05-08 06:01 | L&D Current Admission ---
Current Admit Datetime Report Generated by CPN: 05/08/2016 06:00 ADMISSION INFORMATION Current Admit Date/Time: 05/07/2016 08:00 (05/07/2016 09:00:Suraj Maria RN) Reason for Admission: Onset of Labor (05/07/2016 09:00:Suraj Maria RN) Chief Complaint: Contractions (05/07/2016 09:00:Suraj Maria RN) EGA per Dates: 40.1 (05/07/2016 09:00:QS system process) Method of Arrival: Wheelchair (05/07/2016 09:00:Suraj Maria RN) Reason for Induction: Not Applicable (05/07/2016 09:00:Maine Rivera RN) Records Available: Yes (05/07/2016 09:00:Suraj Maria RN) General Admission Information: Reviewed (05/07/2016 09:00:Suraj Maria RN) BELONGINGS/ADVANCED DIRECTIVES Valuables/Personal Effects: Purse/Wallet; Cell Phone; Eyeglasses (05/07/2016 09:00:Suraj Maria RN) Other Belongings: SEE VALUABLES CONSENT (05/07/2016 09:00:Maine Rivera RN) Disposition of Belongings: Kept with Patient (05/07/2016 09:00:Suraj Maria RN) Advance Direct for Healthcare: No, and Wants No Information (05/07/2016 09:00:Suraj Maria RN) Durable Power of Gin Feeder: No (05/07/2016 09:00:Suraj Maria RN) Living Will: No (05/07/2016 09:00:Suraj Maria RN) Organ Donor: Yes (05/07/2016 09:00:Suraj Maria RN) Pt Rights Information Given: Yes (05/07/2016 09:00:Suraj Maria RN) Pt Understands Pt Rights: Yes (05/07/2016 09:00:Suraj Maria RN) LEARNING ASSESSMENT Knowledge Level: Understands L_D Process; Understands Care Activities; Had Pre-Hospital Education; Understands Diagnosis (05/07/2016 09:00:Suraj Maria RN) Barriers to Learning: None (05/07/2016 09:00:Suraj Maria RN) Learning Readiness: Motivated (05/07/2016 09:00:Suraj Maria RN) Learns Best By: 1 to 1 Instruction; Reading; Videos; Demonstration (05/07/2016 09:00:Maine Rivera RN) Learning Needs: Labor and Delivery Process; Pain Management; Symptoms to Report; Treatment Plan; Medication; Diagnosis; Nutrition; Equipment; Care; Community Resources (05/07/2016 09:00:Maine Rivera RN) DOMESTIC VIOLANCE SCREENING Dom Viol Threatened/Hurt: No (05/07/2016 09:00:Suraj Maria RN) Hx of Abuse/Neglect past 2yrs: No (05/07/2016 09:00:Suraj Maria RN) Feel Unsafe Going Home: No (05/07/2016 09:00:Suraj Maria RN) Addt'l Observ Indicating Abuse: No (05/07/2016 09:00:Suraj Maria RN) Considered Personal Harm/Suicide: No (05/07/2016 09:00:Suraj Maria RN) NUTRITIONAL/FUNCTIONAL SCREENING Problem with Appetite >5 Days: No (05/07/2016 09:00:Suraj Maria RN) Chew/Swallow Difficulties: No (05/07/2016 09:00:Suraj Maria RN) Inappropriate Wt Gain/Loss: No (05/07/2016 09:00:Suraj Maria RN) Presence Skin Breakdown/Ulcer: No (05/07/2016 09:00:Suraj Maria RN) Special Diet: No (05/07/2016 09:00:Suraj Maria RN) Pt Requests Electron Gun Assembler Visit: No (05/07/2016 09:00:Suraj Maria RN) Hx of Any of the Following?: N/A (05/07/2016 09:00:Suraj Maria RN) New Diagnosis of: N/A (05/07/2016 09:00:Suraj Maria RN) Requires Assist w/Ambulation: No (05/07/2016 09:00:Suraj Maria RN) Uses Assist Device to Ambulate: No (05/07/2016 09:00:Suraj Maria RN) Pt Requires Help w/ADL's: No (05/07/2016 09:00:Suraj Maria RN)
--- NOTE | 2016-05-08 06:15 | L&D Care Plan ---
LD CARE PLANS Datetime Report Generated by CPN: 05/08/2016 06:15 Datetime: 05/07/2016 09:11 Pain State: Actual (Donna Camp, RNC) Related To: Labor and Delivery Process; Treatment and Procedures; Post (Donna Camp, RNC) Goal(s): Patients Pain will be Assessed and Managed; Patient will Verbalize Adequate Relief of Pain or the Ability to [place] with Current Pain (Donna Camp, RNC) Interventions: Assess Pain Severity on Scale of 0 (None) to 5 (Severe); Assess Type, Location and Intensity of Pain Each Time Client Reports Discomfort and Notify Provider if Unusal Pain Develops; Encourage Proper Breathing and Relaxation Techniques; Offer Alternatives Such as Repositioning, Calm Environment, Massages, Diversional Activities, Ice Pack, Splinting, and Ambulation; Administer Analgesics as Ordered; Assist with Epidural Placement as Appropriate; Evaluate Therapeutic Effectiveness of Medication and Treatments (Donna Loya, FAIZA) Outcome: Patient will Report Absence or Relief of Pain Consistent with Established Pain Goal (FAIZA Reina) Status: Ongoing (FAIZA Reina) Outcome: Patient will have a Decrease in Signs and Symptoms of Discomfort (Donna Loya, RNC) Status: Ongoing (FAIZA Reina) Outcome: Pain will be Controlled During Procedures (FAIZA Reina) Status: Ongoing (FAIZA Reina) Anxiety State: Risk For (Donna Loya, FAIZA) Related To: Labor and Delivery Process; Fear of Unknown; Situational Crisis; Medical Interventions; Significant Life Event (FAIZA Reina) Goal(s): Patient will have Decreased Anxiety and be able to Function at Acceptable Levels (Donna Loya, FAIZA) Interventions: Assess Verbal and Nonverbal Behavioral Indicators of Anxiety; Assist Patient to Identify and Verbalize Symptoms of Anxiety; Identify and Demonstrate Techniques to Control Anxiety; Assist Patient with Coping Mechanisms to Manage Anxiety; Provide Theraputic Touch for the Patient; Explain to Patient, Using a Calm Reassuring Approach and Nonmedical Terms, All Activities, Procedures, and Concerns; Instruct Patient and Family about Post Discharge Care, Limitations, Symptoms to Report and Resources Available (Donna Loya, FAIZA) Outcome: Patient will Identify, Verbalize and Demonstrate Techniques to Control Anxiety (FAIZA Reina) Status: Ongoing (Donna Loya, [facility]) Outcome: Patient's Posture, Facial Expressions, Gestures and Activity Level will Reflect Decreased Anxiety (FAIZA Reina) Status: Ongoing (Donna Loya, RN) Outcome: Patient will Verbalize a Sense of Control and/or Acceptance of the Situation (Donna Loya, RNC) Status: Ongoing (Donna Loya, RN) Outcome: Patient will Identify and Utilize Support Person (Donna Loya RN) Status: Ongoing (Donna Loya [facility]) Knowledge Deficit State: Actual (FAIZA Reina) Related To: Labor and Delivery Process; Treatment and Procedures; Feeding and Care; Community Resources and Available Support Mechanisms (FAIZA Reina) Goal(s): Patient will Accurately Verbalize Understanding of Plan of Care and Treatment; Patient and Family will Accurately Verbalize Understanding of the Disease Process (FAIZA Reina) Interventions: Assess Motivation and Willingness of Patient/Family to Learn; Assess Preferred Learning Mode: One to One Instruction, Reading, Videos, Group Discussion or Demonstration; Assess Barriers to Learning: Pain, Emotional State, Language Barrier, Cognitive Impairment, Visual or Hearing Deficits; Assess Patient and Family Knowledge of Disease Process, Medications and Treatment; Discuss Therapy and/or Treatment Options, Describe Rationale Behind Management, Therapy and Treatment Recommendations; Instruct Patient and Family on Signs and Symptoms to Report; Instruct Patient and Family on Medication Effects and Side Effects; Provide Appropriate and Timely Education Using Multiple Techniques; Provide Patient and Family with Support Group Information and Resources; Give Clear and Thorough Explanations and Demonstrations (FAIZA Reina) Outcome: Patient and Family will Verbalize Understanding of Condition, Treatment and Signs and Symptoms to Report (FAIZA Reina) Status: Ongoing (FAIZA Reina) Outcome: Patient will Identify Perceived Learning Needs and Express Motivation to Learn ([facility]) Status: Ongoing ([facility]) Outcome: Patient will Verbalize Understanding of Desired Content, and/or Performs Desired Skill Prior to Discharge ([facility]) Status: Ongoing ([facility], [facility]) Infection State: Actual (Donna Loya, [facility]) Related To: Invasive Procedures (Donna Loya, [facility]) Goal(s): The Patient will be Free of Infection, Vital Signs Stable and Lab Work within Normal Parameters (Donna Lilly, [facility]) Interventions: Instruct and Reinforce Proper Handwashing, Hygiene, and Care Techniques to Patient and Family; Monitor Vital Signs; Monitor Patient for the Following Signs of Infection: Fever, Abdominal Tenderness, Unusual Discharge; Monitor Aminiotic Fluid, Urine and Lochia for Color and Odor; Observe Wounds, Incisions and Invasive Line Sites for Redness, Drainage and Edema; Assess IV Sites per Hospital Policy; Monitor Lab and Test Results and Notify Provider of Abnormal Findings; Assess Nutritional Status and Promote Good Nutrition (Donna Loya, [facility]) Outcome: Patient will Remain Free of Infection (Donna Lilly, RN) Status: [facility]ngoing [facility]) Outcome: Infection will be Recognized Early to Allow for Prompt Treatment (Donna Loya, [facility]) Status: Ongoing ([facility]) Outcome: Patient will have Vital Signs Within Expected Range ([facility], RNC) Status: Ongoing ([facility], C) Injury State: Risk For (Donna Camp, RNC) Related To: Labor and Delivery Process (Donna Lilly, RNC) Goal(s): Patient will Remain Free from Injury (Donna Camp, RNC) Interventions: Monitoring as per Hospital Protocol; Assess Neurological Status; Perform Risk Assessment of Patients with Induction and ; Perform Fall Risk Assessment and Prevention per Hospital Protocol; Perform DVT Risk Assessment and Prophylaxis per Hospital Protocol; Ensure that Oxygen, Suction, and Resuscitation Medications and Equipment are Readily Available; Confirm Patient ID Prior to Procedure(s) and Medication Administration per Hospital Policy (Donna Camp, RNC) Outcome: Successful Fall Risk Prevention (Donna Camp, RNC) Status: Ongoing (Donna Camp, RNC) Outcome: Patient will Deliver Infant without Adverse Sequela (Donna Camp, RNC) Status: Ongoing (Donna Camp, RNC) Outcome: Patient's Neurological Status will Remain Stable (Donna Camp, RNC) Status: Ongoing (Donna Camp, RNC) Impaired Skin Integrity State: Risk For (Donna Camp, RNC) Related To: Vaginal Delivery; Invasive Procedures (Donna Camp, RNC) Goal(s): Patient will Maintain Optimal Skin Integrity, Free of Breakdown, Injury or Infection (Donna Camp, RNC) Interventions: Complete Screening for Pressure Ulcer Risk and Initiate Protocol per Hospital Policy; Monitor Site of Skin Impairment for Color Changes, Redness, Swelling, Warmth, Pain or Other Signs of Infection; Encourage and Assist with Position Changes; Monitor Patient's Mobility Status; Provide Adequate Nutrition and Fluids; Teach Patient Appropriate Hygienic Care; Teach Patient/Family Skin Care Management (Donna Loya, RNC) Outcome: Patient will not have Evidence of Injury Such as Skin Breakdown, Scrapes, Cuts, or Bruising (Donna Loya, RNC) Status: Ongoing (Donna Loya, RNC) Outcome: Patient will Report Any Altered Sensation or Pain at Site of Skin Impairment (Donna Loya, RNC) Status: Ongoing (Donna Loya, RNC) Outcome: Patients Incisions and Wounds will be without Signs or Symptoms of Infection (Donna Loya, RNC) Status: Ongoing (Donna Loya, RNC) Outcome: Patient will Demonstrate Understanding of Plan to Heal Skin and Prevent Reinjury and Verbalize Risk Factors (Donna Loya, RNC) Status: Ongoing (Donna Loya, [facility])
[2016-05-08 07:48] LABS: HEMATOCRIT 31.9 % (36.0-47.0); HEMOGLOBIN 11.1 g/dL (12.0-15.5); HGB HCT DIFFERENCE 1.4; MEAN CORPUSCULAR HEMOGLOBIN 29.7 pg (27.0-33.4); MEAN CORPUSCULAR HGB CONC 34.7 g/dL (32.0-36.0); MEAN CORPUSCULAR VOLUME 86 fl (80-97); RED BLOOD COUNT 3.73 10^6/uL (3.72-5.28); RED CELL DISTRIBUTION WIDTH 13.4 % (11.5-14.0)
[2016-05-08 09:38] VITALS: BP 126/61
[2016-05-08] MEDS ORDERED: PRENATAL VITAMIN W-O CA NO5/FE FUMARATE/FA CAPSULE PO SCH (10:00)
[2016-05-08] MEDS ORDERED: SENNOSIDES/DOCUSATE 8.6-50 MG 1 EACH TABLET PO SCH (10:00)
[2016-05-08] MEDS: DOCUSATE SODIUM 100 MG CAPSULE PO SCH (11:10)
[2016-05-08] MEDS: FERROUS SULFATE 325 MG TABLET PO SCH (11:10)
--- NOTE | 2016-05-08 15:56 | PDOC DISCHARGE SUMMARY ---
Final Diagnosis Discharge Date: 05/08/16 - desires early discharge - Final Diagnosis (1) (normal spontaneous vaginal delivery) Is this a current diagnosis for this admission?: Yes (2) Smoker Is this a current diagnosis for this admission?: Yes Discharge Data - Discharge Medication Home Medications: Pnv W-O Ca No5/Fe Fumarate/FA [-U Multiple Vitamin Capsule] 1 cap PO DAILY #90 capsule 11/23/14 Ibuprofen [Motrin 800 mg Tablet] 800 mg PO Q8HP PRN #90 tablet 05/08/16 Reason(s) for Admission: Onset of Labor Procedures: Ultrasound Intrapartum Procedure(s): Spontaneous Vaginal Delivery - Data Baby 1 Female at 1 minute: 9 at 5 minutes: 9 Weight: 3475 kg Home with Mother: Yes Complications: No - Diagnosis Test Laboratory: Temp Pulse Resp BP Pulse Ox 98.0 F 77 18 126/61 H 100 05/08/16 12:54 05/08/16 12:54 05/08/16 12:54 05/08/16 08:48 05/08/16 12:54 05/07/16 05/07/16 05/08/16 08:34 09:09 07:10 RBC 3.51 L 3.73 Hgb 10.2 L 11.1 L Hct 29.7 L 31.9 L Urine Opiates Screen NEGATIVE - Discharge information/Instructions Discharge Activity: Activity As Tolerated, Pelvic Rest, Slowly Increase Activity Discharge Diet: Regular Disposition: HOME, SELF-CARE Follow up with: [facility] in: 4, Weeks Physical Exam (OB) Vital Signs: Temp Pulse Resp BP Pulse Ox 98.0 F 77 18 126/61 H 100 05/08/16 12:54 05/08/16 12:54 05/08/16 12:54 05/08/16 08:48 05/08/16 12:54 Intake & Output 05/07/16 05/08/16 05/09/16 06:59 06:59 06:59 Intake Total 800 Balance 800 Weight 83.95 kg - General General Appearance: Appears well In distress: None - Episiotomy/Laceration Site Condition: N/A - Lochia Lochia Amount: Small 10-25 ml Lochia Color: Rubra/Red - Abdomen Description: Soft, Round Hernia Present: No Fundal Description: Firm, Midline Fundal Height: u/u - u/2 - Respiratory Respiratory Status: No respiratory distress - Extremities Upper extremity: Normal inspection Lower extremities: Normal inspection - Neurological Cognition: Normal Orientation: AAOx4 - Psychological Associated symptoms: Normal affect, Normal mood - helpful at bedside. Desire early discharge (mother at home with the three other children and a puppy and losing her patience). No concerns at this time. Desire depo for contraception right now but planning BTL.
[2016-05-08] MEDS ORDERED: MEDROXYPROGESTERONE ACET INJ 150 MG/1 ML VIAL IM ONE (16:05)
== END 2016-05-08 16:00 | disposition home or self-care (01) | DRG 775 ==
LOC: LC 08:24 → LR 08:51 → 2S 17:04
PROVIDERS: ADMIT Obstetrics & Gynecology; ATTEND Obstetrics & Gynecology
PROC: 10E0XZZ Delivery of Products of Conception, External Approach (ICD-10-PCS; principal; 2016-05-07)
PROC: 10907ZC Drainage of Amniotic Fluid, Therapeutic from Products of Conception, Via Natural or Artificial Opening (ICD-10-PCS; 2016-05-07)
PROC: 4A1HXCZ Monitoring of Products of Conception, Cardiac Rate, External Approach (ICD-10-PCS; 2016-05-07)
DX: O99.824 Streptococcus B carrier state complicating childbirth (principal); O99.344 Other mental disorders complicating childbirth; F32.9 Major depressive disorder, single episode, unspecified; O99.334 Smoking (tobacco) complicating childbirth; F17.210 Nicotine dependence, cigarettes, uncomplicated; O69.81X0 Labor and delivery complicated by cord around neck, without compression, not applicable or unspecified; O77.0 Labor and delivery complicated by meconium in amniotic fluid; Z28.21 Immunization not carried out because of patient refusal; Z3A.40 40 weeks gestation of pregnancy; Z37.0 Single live birth
CPT/HCPCS: 36415; 80307; 81005; 85025; 85027; 86592; 86850; 86900; 86901; J1050; J2540; J2590; J3490

== ENCOUNTER 2017-02-24 21:01 | Emergency (ER) | payer OTHER, MEDICAID ==
[2017-02-24 22:20] LABS: APPEARANCE,URINE CLOUDY; BILIRUBIN,URINE NEGATIVE (NEGATIVE); COLOR,URINE YELLOW; GLUCOSE, URINE NEGATIVE (NEGATIVE); KETONES,URINE NEGATIVE (NEGATIVE); LEUKOCYTE ESTERASE,URINE LARGE (NEGATIVE); NITRITE,URINE NEGATIVE (NEGATIVE); PROTEIN,URINE 30 mg/dL (NEGATIVE); URINE SPECIFIC GRAVITY 1.011; UROBILINOGEN,URINE NEGATIVE mg/dL (<2.0)
[2017-02-24] MEDS ORDERED: CEFTRIAXONE INJ 1000 MG VIAL IM ONE (22:33)
[2017-02-24] MEDS ORDERED: LIDOCAINE 1% INJ-PF (10 MG/ML) 30 ML SDV INJ ONE (22:33)
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
[2017-02-24 23:09] LABS: ABSOLUTE EOSINOPHILS # (AUTO) 0.1 10^3/uL (0.0-0.6); ABSOLUTE LYMPHOCYTES (AUTO) 1.6 10^3/uL (0.5-4.7); ABSOLUTE MONOCYTES (AUTO) 0.4 10^3/uL (0.1-1.4); ABSOLUTE NEUT (AUTO) 5.7 10^3/uL (1.7-8.2); BASOPHILS % (AUTO) 0.5 % (0-2); EOSINOPHILS % (AUTO) 1.5 % (0-6); HEMATOCRIT 31.9 % (36.0-47.0); HEMOGLOBIN 11.1 g/dL (12.0-15.5); LYMPHOCYTES % (AUTO) 20.8 % (13-45); MEAN CORPUSCULAR HEMOGLOBIN 29.6 pg (27.0-33.4); MEAN CORPUSCULAR HGB CONC 34.8 g/dL (32.0-36.0); MEAN CORPUSCULAR VOLUME 85 fl (80-97); MONOCYTES % (AUTO) 4.7 % (3-13); PLATELET COUNT 208 10^3/uL (150-450); RED BLOOD COUNT 3.75 10^6/uL (3.72-5.28); RED CELL DISTRIBUTION WIDTH 13.6 % (11.5-14.0); SEGMENTED NEUTROPHILS % (AUTO) 72.5 % (42-78); TOTAL CELLS COUNTED % (AUTO) 100 %; WHITE BLOOD COUNT 7.8 10^3/uL (4.0-10.5)
[2017-02-24 23:24] LABS: ALANINE AMINOTRANSFERASE 18 U/L (9-52); ALBUMIN 4.1 g/dL (3.5-5.0); ALKALINE PHOSPHATASE 55 U/L (38-126); ANION GAP 10 (5-19); ASPARTATE AMINO TRANSFERASE 13 U/L (14-36); BLOOD UREA NITROGEN 9 mg/dL (7-20); CALCIUM 9.4 mg/dL (8.4-10.2); CARBON DIOXIDE 23 mmol/L (22-30); CHLORIDE 105 mmol/L (98-107); GLUCOSE 86 mg/dL (75-110); POTASSIUM 3.8 mmol/L (3.6-5.0); SODIUM 137.7 mmol/L (137-145); TOTAL PROTEIN 6.8 g/dL (6.3-8.2)
[2017-02-24 23:30] LABS: BILIRUBIN,TOTAL < 0.1 mg/dL (0.2-1.3)
[2017-02-25] VITALS: BP 120/58
== END 2017-02-24 23:52 | disposition home or self-care (01) ==
LOC: ER 21:01
DX: O23.01 Infections of kidney in pregnancy, first trimester (principal); O26.891 Other specified pregnancy related conditions, first trimester; R31.0 Gross hematuria; Z3A.11 11 weeks gestation of pregnancy
CPT/HCPCS: 99283; 36415; 87086; 85025; 87088; 80053; 81001; 87186; J3490; J0696

== ENCOUNTER 2017-09-16 06:01 | Inpatient (IN) | payer OTHER, MEDICAID ==
[2017-09-16 06:38] LABS: ABSOLUTE BASOPHILS # (AUTO) 0.1 10^3/uL (0.0-0.2); ABSOLUTE EOSINOPHILS # (AUTO) 0.1 10^3/uL (0.0-0.6); ABSOLUTE LYMPHOCYTES (AUTO) 1.7 10^3/uL (0.5-4.7); ABSOLUTE MONOCYTES (AUTO) 0.2 10^3/uL (0.1-1.4); ABSOLUTE NEUT (AUTO) 4.9 10^3/uL (1.7-8.2); BASOPHILS % (AUTO) 0.7 % (0-2); EOSINOPHILS % (AUTO) 1.4 % (0-6); HEMATOCRIT 29.2 % (36.0-47.0); HEMOGLOBIN 10.2 g/dL (12.0-15.5); LYMPHOCYTES % (AUTO) 24.2 % (13-45); MEAN CORPUSCULAR VOLUME 83 fl (80-97); MONOCYTES % (AUTO) 3.2 % (3-13); PLATELET COUNT 188 10^3/uL (150-450); RED BLOOD COUNT 3.52 10^6/uL (3.72-5.28); RED CELL DISTRIBUTION WIDTH 14.8 % (11.5-14.0); SEGMENTED NEUTROPHILS % (AUTO) 70.5 % (42-78); TOTAL CELLS COUNTED % (AUTO) 100 %
[2017-09-16 06:49] LABS: APPEARANCE,URINE CLEAR; BILIRUBIN,URINE NEGATIVE (NEGATIVE); COLOR,URINE AMBER; GLUCOSE, URINE NEGATIVE (NEGATIVE); KETONES,URINE NEGATIVE (NEGATIVE); LEUKOCYTE ESTERASE,URINE TRACE (NEGATIVE); NITRITE,URINE NEGATIVE (NEGATIVE); PROTEIN,URINE NEGATIVE (NEGATIVE); URINE SPECIFIC GRAVITY 1.009; UROBILINOGEN,URINE NEGATIVE mg/dL (<2.0)
[2017-09-16 07:07] LABS: URINE AMPHETAMINES SCREEN NEGATIVE; URINE BARBITURATES SCREEN NEGATIVE; URINE BENZODIAZEPINES SCREEN NEGATIVE; URINE COCAINE SCREEN NEGATIVE; URINE MARIJUANA (THC) SCREEN NEGATIVE; URINE METHADONE SCREEN NEGATIVE; URINE PHENCYCLIDINE SCREEN NEGATIVE
[2017-09-16] MEDS ORDERED: LIDOCAINE 1% INJ-PF (10 MG/ML) 30 ML SDV ONE (07:27)
[2017-09-16] MEDS ORDERED: OXYTOCIN/NORMAL SALINE 0 UNIT/0 ML RTUINJ ONE (07:27)
[2017-09-16] MEDS ORDERED: MISOPROSTOL 0.2 MG TABLET ONE (07:27)
[2017-09-16] MEDS ORDERED: OXYTOCIN/NORMAL SALINE 20 UNIT/1,000 ML RTUINJ ONE (07:27)
[2017-09-16] MEDS ORDERED: RINGERS SOLUTION,LACTATED 1,000 ML IV PRN (07:37)
[2017-09-16] MEDS ORDERED: RINGERS SOLUTION,LACTATED 300 ML IV ONE (07:37)
[2017-09-16] MEDS ORDERED: OXYTOCIN/NORMAL SALINE 20 UNIT/1,000 ML RTUINJ IV PRN ×2 (07:37→11:06)
--- NOTE | 2017-09-16 07:49 | Admission Physical ---
Datetime Report Generated by CPN: 09/16/2017 07:48 CURRENT ADMISSION Chief Complaint: Scheduled Induction of Labor Indication for Induction: Post Dates Admit Impression : Term, Intrauterine ; No Active Labor Admit Plan: Admit to Unit; Initiate Labor Induction Protocol ALLERGIES Medication Allergies: No Medication Allergies: adhesive (09/16/2017) OBSTETRICAL HISTORY EDC: 09/11/2017 00:00 : 5 Para: 4 Term: 4 : 0 SAB: 0 IAB: 0 Ectopic: 0 Livin Cesareans: 0 VBACs: 0 Multiple Births: 0 SEE RECORDS Cigarettes: Current Everyday Smoker. [id number] Advised to Stop: Yes Cigarette Comments: 1/2 pack per day PHYSICAL EXAM General: Normal HEENT: Normal Neurologic: Normal Thyroid: Deferred Heart: Normal Lungs: Normal Breast: Deferred Back: Normal Abdomen: Normal Genitourinary Exam: Normal Extremities: Normal DTRs: Normal Pelvic Type: Adequate Vital Signs: Reviewed VAGINAL EXAM Dilatation: 3 Effacement: 50 Station: -2 Contraction Comments: irreg MEMBRANES Membranes: Intact FETUS A EGA: 40.5 Monitoring: External US FHR- Baseline: 125 Variability: Moderate 6-25bpm Accelerations: 15X15 Decelerations: None FHR Category: Category I Presentation: Vertex Admit Comment: 22yo at 40+5ega presents for scheduled IOL. H/o asthma, Fibromyalgia, h/o depression. GBS negative. IOL consents reviewed with pt in office. Admit to L_D and begin pitocin for IOL. Anticipate . PLANS FOR LABOR AND DELIVERY Labor and Delivery: None Pain Management: Epidural Feeding Preference: Both Benefit of Breast Feed Discussed: Yes INFORMED CONSENT Informed Consent Obtained: Vaginal Delivery; Induction of Labor; Risks, Benefits and Alternatives Discussed Signature: with User ID: [email or web address]
[2017-09-16] MEDS ORDERED: EPHEDRINE SULFATE INJ 50 MG/1 ML AMPULE ONE (09:03)
[2017-09-16] MEDS ORDERED: BUPIVACAINE HCL 0.25 % INJ/PF (2.5 MG/1 ML) 30 ML VIAL ONE (09:04)
[2017-09-16] MEDS ORDERED: FENTANYL/BUPIVACAINE/NS/PF 300 MCG/150 ML RTUINJ EPI ONE (09:04)
--- NOTE | 2017-09-16 09:18 | L&D Progress Notes ---
PROGRESS NOTES Datetime Report Generated by CPN: 09/16/2017 09:18 PROGRESS NOTE Procedures: Artificial ROM Plan: Continue Present Management; Induction Informed Consent Obtained: Vaginal Delivery; Risks, Benefits and Alternatives Discussed Informed Consent Obtained: Vaginal Delivery; Induction of Labor; Risks, Benefits and Alternatives Discussed Comment: 22 yo admitted for IOL EDC 09/11/17 EGA 40.5 nkda phx: asthma- exercise induced fibromyalgia depression- denies SI/HI term SVE /-2 AROM clear abdomen soft pt desires epidural/ start iv bolus poc reviewed with pt and spouse anticipate vaginal delivery VAGINAL EXAM Dilatation: 4 Dilatation: 3 Effacement: 80 Effacement: 50 Station: -2 Station: -2 Contractions: irreg MEMBRANES Membranes: Ruptured Membranes: Intact Amniotic Fluid Color: Clear FETUS A FHR - Baseline: 120 Monitoring: External US Variability: Moderate 6-25bpm Accelerations: 15X15 Decelerations: None FHR Category: Category I : 40.5 Presentation: Vertex SIGNATURE SIGNATURE: [id number] SIGNATURE: [id number] Assignment: Kerwin Long MD Signature: with User ID: [email or web address] : with User ID: [email or web address]
[2017-09-16] MEDS ORDERED: DIPH/PERTUSS(ACELL)/TETANUS VAC/PF 0.5 ML SYR (>=10YO) IM PRN (11:06)
[2017-09-16] MEDS ORDERED: ZOLPIDEM TARTRATE 5 MG TABLET PO PRN (11:06)
[2017-09-16] MEDS ORDERED: BENZOCAINE/MENTHOL AEROSOL SPRAY 56 ML TOP PRN (11:06)
[2017-09-16] MEDS ORDERED: DIBUCAINE 1% OINTMENT 28 GM TP PRN (11:06)
[2017-09-16] MEDS ORDERED: MEASLES,MUMPS&RUBELLA VACC/PF 0.5 ML VIAL SUBCUT PRN (11:06)
[2017-09-16] MEDS ORDERED: ACETAMINOPHEN WITH CODEINE #3 TABLET ONE ×2 (11:26→19:56)
[2017-09-16] MEDS ORDERED: IBUPROFEN 800 MG TABLET ONE (11:26)
[2017-09-16] MEDS: IBUPROFEN 800 MG TABLET PO SCH ×2 (11:31→21:52)
[2017-09-16] MEDS: DOCUSATE SODIUM 100 MG CAPSULE PO SCH (17:42)
[2017-09-16] MEDS ORDERED: FERROUS SULFATE 325 MG TABLET PO SCH (18:00)
[2017-09-16] MEDS ORDERED: ACETAMINOPHEN WITH CODEINE #3 TABLET PO ONE (20:30)
[2017-09-17] MEDS: IBUPROFEN 800 MG TABLET PO SCH ×2 (06:02→13:19)
[2017-09-17 07:20] LABS: HEMATOCRIT 26.1 % (36.0-47.0); MEAN CORPUSCULAR HEMOGLOBIN 28.7 pg (27.0-33.4); MEAN CORPUSCULAR HGB CONC 34.4 g/dL (32.0-36.0); MEAN CORPUSCULAR VOLUME 83 fl (80-97); PLATELET COUNT 159 10^3/uL (150-450); RED BLOOD COUNT 3.12 10^6/uL (3.72-5.28); RED CELL DISTRIBUTION WIDTH 14.9 % (11.5-14.0); WHITE BLOOD COUNT 7.6 10^3/uL (4.0-10.5)
--- NOTE | 2017-09-17 09:03 | PDOC PROGRESS REPORT ---
Subjective-OB Progress Note for:: 09/17/17 Subjective: Asking for early discharge if baby is discharged. Physical Exam (OB) Vital Signs: Temp Pulse Resp BP Pulse Ox 98.2 F 67 16 103/53 L 100 09/17/17 00:00 09/17/17 00:00 09/17/17 00:00 09/17/17 00:00 09/17/17 00:00 Intake & Output 09/16/17 09/17/17 09/18/17 06:59 06:59 06:59 Weight 86.8 kg - PIH/Pre-Eclampsia Clonus: Negative - Lochia Lochia Amount: Scant < 10 ml Lochia Color: Rubra/Red - Abdomen Description: Soft, Round Hernia Present: No Bowel Sounds: Normoactive Flatus Presence: Present Stool: Yes Fundal Description: Firm, Midline Fundal Height: u/u - u/2 Objective-Diagnostic Laboratory: 09/17/17 07:02 09/17/17 07:02 WBC 7.6 RBC 3.12 L Hgb 9.0 L Hct 26.1 L MCV 83 MCH 28.7 MCHC 34.4 RDW 14.9 H Plt Count 159
[2017-09-17] MEDS: DOCUSATE SODIUM 100 MG CAPSULE PO SCH ×2 (09:45→17:22)
[2017-09-17] MEDS ORDERED: PRENATAL VITAMIN W DHA CAPSULE PO SCH (10:00)
[2017-09-17] MEDS ORDERED: SENNOSIDES/DOCUSATE 8.6-50 MG 1 EACH TABLET PO SCH (10:00)
--- NOTE | 2017-09-17 12:13 | PDOC DISCHARGE SUMMARY ---
Final Diagnosis Discharge Date: 09/17/17 - Final Diagnosis (1) Delivery normal Is this a current diagnosis for this admission?: Yes (2) Grand multipara Is this a current diagnosis for this admission?: Yes (3) History of depression Is this a current diagnosis for this admission?: Yes (4) Personal history of fibromyalgia Is this a current diagnosis for this admission?: Yes (5) Is this a current diagnosis for this admission?: Yes Discharge Data - Discharge Medication Home Medications: Albuterol Sulfate [Ventolin Hfa 8 gm Mdi (1 Mdi/ER Disp)] 2 puff IH ASDIR PRN Gestational Age: 40.5 wks Reason(s) for Admission: Induction of Labor Procedures: Ultrasound Intrapartum Procedure(s): Spontaneous Vaginal Delivery - [place] Data Baby 1 Male at 1 minute: 9 at 5 minutes: 9 Weight: 3.289 kg Home with Mother: Yes Complications: No - Diagnosis Test Laboratory: Temp Pulse Resp BP Pulse Ox 98.1 F 71 16 126/76 H 100 09/17/17 08:11 09/17/17 08:11 09/17/17 08:11 09/17/17 08:11 09/17/17 08:11 09/16/17 09/16/17 09/17/17 06:09 06:27 07:02 RBC 3.52 L 3.12 L Hgb 10.2 L 9.0 L Hct 29.2 L 26.1 L Urine Opiates Screen NEGATIVE - Discharge information/Instructions Discharge Activity: Activity As Tolerated, Balance Activity w/Rest, Pelvic Rest , Slowly Increase Activity, No tub bath Discharge Diet: Regular Disposition: HOME, SELF-CARE Follow up with: [facility] in: 4, Weeks
[2017-09-17 19:19] VITALS: BP 103/53
--- NOTE | 2017-09-27 17:09 | Delivery Summary ---
Del Sum A-C Datetime Report Generated by CPN: 09/27/2017 17:08 DELIVERY PERSONNEL DELIVERY PERSONNEL: [id number] Delivery Doctor:: Harjit Lynn CNM Labor and Delivery Nurse:: Alondra Wilkes RNsummer camp counselor Nurse:: Deepti Matias RN MATERNAL INFORMATION Delivery Anesthesia: Epidural Medications After Delivery: Pitocin Drip 20 Units/1000ml NSS Maternal Complications: None Provider Comments: delivery of viable male apgars 9/9 bulb suctioned on perineum AUDREY left compound hand nuchal x 1 easily reduced to abdomen/ spontaneous cry EBL 150cc no lacerations cord blood obtained ff@[id number] hemostasis achieved LABOR SUMMARY EDC: 09/11/2017 00:00 No. Babies in Womb: 1 Attempted: No Labor Anesthesia: Epidural LABOR INFORMATION Reason for Induction: Post Dates Onset of Labor: 09/16/2017 07:45 Complete Dilatation: 09/16/2017 10:38 Oxytocin: Induction Group B Beta Strep: Negative Antibiotics # of Doses: 0 Antibiotics Time of Last Dose: N/A Name of Antibiotic Given: N/A Steroids Given: None Reason Steroids Not Administered: Not Applicable Other Reason Not Administered: N/A MEMBRANES Membranes Rupture Method: Artificial Rupture of Membranes: 09/16/2017 08:56 Length of Rupture (hr): 1.88 Amniotic Fluid Color: Clear Amniotic Fluid Amount: Small Amniotic Fluid Odor: Normal STAGES OF LABOR Stage 1 hr: 2 Stage 1 min: 53 Stage 2 hr: 0 Stage 2 min: 11 Stage 3 hr: 0 Stage 3 min: 5 Total Time in Labor hr: 3 Total Time in Labor min: 9 VAGINAL DELIVERY Episiotomy: None Laceration #1: None Laceration Extension #1: N/A Laceration Repair: Not Applicable CSECTION DELIVERY Primary Indication: N/A Secondary Indication: N/A BABY A INFORMATION Delivery Date/Time: 09/16/2017 10:49 Method of Delivery: Vaginal Born in Route : No : N/A Forceps: N/A Vacuum Extraction: N/A Shoulder Dystocia : No PRESENTATION/POSITION BABY A Presentation: Cephalic Cephalic Presentation: Vertex Vertex Position: Left Occipital Anterior Breech Presentation: N/A PLACENTA INFORMATION BABY A Placenta Delivery Time : 09/16/2017 10:54 Placenta Method of Delivery: Spontaneous Placenta Method of Delivery: Spontaneous Placenta Status: Delivered SCORES BABY A Heart Rate 1 min: >100 bpm Resp Effort 1 min: Good Cry Reflex Irritability 1 min: Cough or Sneeze or Pulls Away Muscle Tone 1 min: Active Motion Color 1 min: Body [place], Extremities Blue Resuscitation Effort 1 min: Tactile Stimulation SCORE 1 MIN: 9 Heart Rate 5 min: >100 bpm Resp Effort 5 min: Good Cry Reflex Irritability 5 min: Cough or Sneeze or Pulls Away Muscle Tone 5 min: Active Motion Color 5 min: Body [place], Extremities Blue Resuscitation Effort 5 min: Tactile Stimulation SCORE 5 MIN: 9 INFORMATION BABY A Gestational Age at Delivery: 40.5 Gestational Status: Full Term- 39- 40.6 Weeks Outcome : Liveborn Condition : Stable Infant Sex: Male IDENTIFICATION BABY A Infant Verification Date/Time: 09/09/2017 12:02 ID Band Number: [id number] Mother's Name Verified: Yes RN Verifying Infant: D Bellavance RN/C Hutton RN WEIGHT/LENGTH BABY A Infant Birthweight (gm): 3300 Weight (lb): 7 Infant Weight (oz): 4 Length (in): 19.50 Length (cm): 49.53 CORD INFORMATION BABY A No. Cord Vessels: 3 Nuchal Cord : Around Neck x1, Loose Nuchal Cord- Other: left compound hand Cord Blood Taken: Yes-For Storage (Mom's Blood type +) Infant Suction: Mouth; Nose ASSESSMENT BABY A Skin to Skin: Yes Skin to Skin Time (min): 60 BABY B INFORMATION : N/A SIGNATURES Assignment: Kerwin Long, MD Signature: with User ID: [email or web address] : with User ID: [email or web address]
== END 2017-09-17 20:30 | disposition home or self-care (01) | DRG 775 ==
LOC: LR 06:01 → 2N 13:13
PROVIDERS: ADMIT Obstetrics & Gynecology Gynecology; ATTEND Obstetrics & Gynecology Gynecology
PROC: 10E0XZZ Delivery of Products of Conception, External Approach (ICD-10-PCS; principal; 2017-09-16)
DX: O48.0 Post-term pregnancy (principal); O69.81X0 Labor and delivery complicated by cord around neck, without compression, not applicable or unspecified; O75.89 Other specified complications of labor and delivery; O99.52 Diseases of the respiratory system complicating childbirth; J45.909 Unspecified asthma, uncomplicated; O99.334 Smoking (tobacco) complicating childbirth; F17.210 Nicotine dependence, cigarettes, uncomplicated; Z3A.40 40 weeks gestation of pregnancy; Z37.0 Single live birth
CPT/HCPCS: 36415; 80307; 81005; 85025; 85027; 86592; 86850; 86900; 86901; 94760; J2590; J3010; J3490

== ENCOUNTER 2017-11-22 06:50 | Day surgery (SDC) | payer OTHER, MEDICAID ==
[2017-11-19 12:23] LABS: HEMATOCRIT 36.4 % (36.0-47.0); HEMOGLOBIN 12.5 g/dL (12.0-15.5); MEAN CORPUSCULAR HEMOGLOBIN 28.8 pg (27.0-33.4); MEAN CORPUSCULAR HGB CONC 34.4 g/dL (32.0-36.0); MEAN CORPUSCULAR VOLUME 84 fl (80-97); PLATELET COUNT 209 10^3/uL (150-450); RED BLOOD COUNT 4.35 10^6/uL (3.72-5.28); RED CELL DISTRIBUTION WIDTH 15.5 % (11.5-14.0); WHITE BLOOD COUNT 6.8 10^3/uL (4.0-10.5)
[2017-11-19 12:32] LABS: APPEARANCE,URINE CLOUDY; BILIRUBIN,URINE NEGATIVE (NEGATIVE); COLOR,URINE YELLOW; GLUCOSE, URINE NEGATIVE (NEGATIVE); KETONES,URINE NEGATIVE (NEGATIVE); LEUKOCYTE ESTERASE,URINE MODERATE (NEGATIVE); NITRITE,URINE POSITIVE (NEGATIVE); PROTEIN,URINE NEGATIVE (NEGATIVE); URINE SPECIFIC GRAVITY 1.021; UROBILINOGEN,URINE NEGATIVE mg/dL (<2.0)
[2017-11-19 12:47] LABS: ALANINE AMINOTRANSFERASE 12 U/L (9-52); ALBUMIN 4.5 g/dL (3.5-5.0); ALKALINE PHOSPHATASE 65 U/L (38-126); ANION GAP 10 (5-19); ASPARTATE AMINO TRANSFERASE 19 U/L (14-36); BILIRUBIN,DIRECT 0.3 mg/dL (0.0-0.4); BILIRUBIN,TOTAL 0.4 mg/dL (0.2-1.3); BLOOD UREA NITROGEN 11 mg/dL (7-20); CALCIUM 9.8 mg/dL (8.4-10.2); CARBON DIOXIDE 23 mmol/L (22-30); CHLORIDE 110 mmol/L (98-107); GLUCOSE 80 mg/dL (75-110); POTASSIUM 4.4 mmol/L (3.6-5.0); TOTAL PROTEIN 7.7 g/dL (6.3-8.2)
[~2017-11-22 06:50] MED LIST: ACETAMINOPHEN 1,000 MG/100 ML RTUPB IV ONE; CEFAZOLIN 1 GM/D5W RTU 1 GM/50 ML RTUPB IV PRN; DEXAMETHASONE SOD PHOSPHATE INJ 4 MG/1 ML VIAL ONE; FENTANYL CITRATE INJ/PF 100 MCG/2 ML AMPUL ONE; LIDOCAINE 2% INJ-PF (100 MG/5 ML) SYRINGE ONE; MIDAZOLAM 2 MG/2 ML INJ ONE; ONDANSETRON HCL INJ/PF 4 MG/2 ML SDV ONE; PROPOFOL INJ 200 MG/20 ML VIAL IV ONE; RINGERS SOLUTION,LACTATED 1,000 ML IV PRN
[2017-11-22] MEDS ORDERED: FENTANYL CITRATE INJ/PF 100 MCG/2 ML AMPUL ONE (06:53)
[2017-11-22] MEDS ORDERED: FENTANYL CITRATE INJ/PF 100 MCG/2 ML AMPUL IV PRN ×3 (08:58)
[2017-11-22] MEDS ORDERED: MEPERIDINE HCL/PF INJ 25 MG/1 ML DISP.SYRIN IV PRN (08:58)
[2017-11-22] MEDS ORDERED: ONDANSETRON HCL INJ/PF 4 MG/2 ML SDV IV PRN (08:58)
[2017-11-22] MEDS ORDERED: MORPHINE SULFATE 10 MG/ML INJ IV PRN (08:58)
[2017-11-22] MEDS ORDERED: PROMETHAZINE HCL INJ 25 MG/1 ML VIAL IV PRN ×2 (08:58)
[2017-11-22] MEDS ORDERED: DIPHENHYDRAMINE HCL 50 MG/ML VIAL IV PRN (08:58)
[2017-11-22] MEDS: FENTANYL CITRATE INJ/PF 100 MCG/2 ML AMPUL ONE ×2 (09:25→09:35)
[2017-11-22] MEDS ORDERED: PROMETHAZINE HCL INJ 25 MG/1 ML VIAL ONE (09:26)
[2017-11-22] MEDS: HYDROMORPHONE HCL INJ/PF 2 MG/ML AMPULE ONE ×2 (09:40→09:50)
--- NOTE | 2017-11-22 09:55 | OPERATIVE REPORT E ---
Operative Report NAME: GERARD CARLTON : 1995 AGE: 22Y DATE OF SURGERY: 11/22/2017 ROOM: PREOPERATIVE DIAGNOSIS: Dysmenorrhea, failed conservative therapy. POSTOPERATIVE DIAGNOSIS: Dysmenorrhea, failed conservative therapy. PROCEDURE: [facility]. SURGEON: Amber GOULD M.D. ESTIMATED BLOOD LOSS: Less than 100 mL. TISSUE REMOVED OR ALTERED: Uterus. ANESTHESIA: General. DESCRIPTION OF PROCEDURE: The patient was placed in the dorsal lithotomy position, prepped and draped in sterile fashion. A speculum was placed. Cervix was visualized and grasped with Margarette thyroid clamp. Posterior cul-de-sac was entered with sharp dissection. Posterior parietal peritoneum was sutured *------* 2-0 Vicryl. Left uterosacral was clamped, divided, and sutured with 2-0 Vicryl, repeated on the right. Cervix was sharply circumscribed. The anterior parietal peritoneum was entered with sharp dissection, serial clamps on each side of the uterus on the broad ligament, each pedicle being clamped, divided, and sutured with 2-0 Vicryl, continued to the level of the utero-ovarian ligaments, which were crossclamped and uterus removed. Utero-ovarian ligament was sutured with free tie of 2-0 Vicryl followed by a suture tie of 2-0 Vicryl. The pelvis was inspected and hemostasis was noted. Cuff was closed with interrupted sutures of 2-0 Vicryl and hemostasis was noted. Urine remained clear throughout the procedure and she was taken to recovery room in good condition. DICTATING PHYSICIAN: Amber GOULD M.D. [id number] Y#: [id number] ID: [id number] JOB#: [id number] ACCT: [id number] cc:Amber GOULD M.D. >
[2017-11-22] MEDS: OXYCODONE-ACETAMINOPHEN 5-325 MG TABLET PO PRN ×2 (10:48→17:28)
[2017-11-22] MEDS: MORPHINE SULFATE 10 MG/ML INJ IM PRN ×2 (12:49→21:03)
[2017-11-22] MEDS: ONDANSETRON 4 MG TAB.RAPDIS PO SCH ×2 (13:37→23:08)
[2017-11-22] MEDS ORDERED: SUCCINYLCHOLINE CHLORIDE INJ 200 MG/10 ML VIAL ONE (14:09)
[2017-11-22] MEDS ORDERED: VECURONIUM BROMIDE INJ 10 MG VIAL IV ONE (14:09)
[2017-11-22] MEDS ORDERED: GLYCOPYRROLATE 1 MG/5 ML SYRINGE ONE (14:09)
[2017-11-22] MEDS ORDERED: NEOSTIGMINE METHYLSULFATE 10 MG/10 ML VIAL ONE (14:09)
[2017-11-22] MEDS: IBUPROFEN 800 MG TABLET PO SCH ×2 (14:33→23:06)
[2017-11-23] MEDS: OXYCODONE-ACETAMINOPHEN 5-325 MG TABLET PO PRN (03:58)
[2017-11-23] MEDS: ONDANSETRON 4 MG TAB.RAPDIS PO SCH (06:07)
[2017-11-23] MEDS: IBUPROFEN 800 MG TABLET PO SCH (06:08)
--- NOTE | 2017-11-23 11:56 | PDOC DISCHARGE SUMMARY ---
General - Admit/Disc Date/PCP Admission Date/Primary Care Provider: CARLA BARILLAS Discharge Date: 11/23/17 - Discharge Diagnosis (1) Abnormal uterine and vaginal bleeding, unspecified Is this a current diagnosis for this admission?: Yes - Additional Information Home Medications: Albuterol Sulfate [Ventolin Hfa 8 gm Mdi (1 Mdi/ER Disp)] 2 puff IH ASDIR PRN History of Present Illness History of Present Illness: GERARD CARLTON is a 22 year old female Hospital Course Hospital Course: underwent vaginal hysterectomy without difficulty. unremarkable post operative course. Physical Exam - Physical Exam Vital Signs: Temp Pulse Resp BP Pulse Ox 98.1 F 56 L 22 H 114/63 97 11/23/17 08:05 11/23/17 08:05 11/23/17 08:05 11/23/17 08:05 11/23/17 08:05 Intake & Output 11/22/17 11/23/17 11/24/17 06:59 06:59 06:59 Intake Total 5830 Output Total 2300 Balance 3530 Weight 80.29 kg General appearance: PRESENT: no acute distress, cooperative GI/Abdominal exam: PRESENT: soft - nontender and non distended Result Laboratory Results: 11/19/17 11:15 11/19/17 11:15 Plan Discharge Plan: discharge home with scheduled follow up Time Spent: Less than 30 Minutes
[2017-11-23 12:49] VITALS: BP 129/77
== END 2017-11-23 13:08 | disposition home or self-care (01) ==
LOC: OROUT 06:50 → 2S 10:41 → OROUT 11-23 13:08
PROVIDERS: ATTEND Obstetrics & Gynecology Gynecology
DX: N94.6 Dysmenorrhea, unspecified (principal); N93.8 Other specified abnormal uterine and vaginal bleeding; N72 Inflammatory disease of cervix uteri; N85.8 Other specified noninflammatory disorders of uterus; J45.909 Unspecified asthma, uncomplicated; F17.210 Nicotine dependence, cigarettes, uncomplicated; M79.7 Fibromyalgia; D64.9 Anemia, unspecified; G43.909 Migraine, unspecified, not intractable, without status migrainosus; Z79.51 Long term (current) use of inhaled steroids
CPT/HCPCS: 86900; 86901; 36415 ×2; 86850; 85027; 81025; 80053; 81001; 88307 ×2; 94640; 58260; J2250; J0690; J1100; S0119 ×2; J3010; J2001; J3490 ×2; J2270; J1170; J2550; J0330; J2405; J2704; J0131; 944

== ENCOUNTER 2017-12-08 16:10 | Emergency (ER) | payer OTHER, MEDICAID ==
[2017-12-08 17:32] LABS: ABSOLUTE EOSINOPHILS # (AUTO) 0.1 10^3/uL (0.0-0.6); ABSOLUTE LYMPHOCYTES (AUTO) 2.3 10^3/uL (0.5-4.7); ABSOLUTE MONOCYTES (AUTO) 0.2 10^3/uL (0.1-1.4); ABSOLUTE NEUT (AUTO) 2.8 10^3/uL (1.7-8.2); BASOPHILS % (AUTO) 0.8 % (0-2); EOSINOPHILS % (AUTO) 2.6 % (0-6); HEMATOCRIT 34.3 % (36.0-47.0); HEMOGLOBIN 11.5 g/dL (12.0-15.5); LYMPHOCYTES % (AUTO) 42.2 % (13-45); MEAN CORPUSCULAR HEMOGLOBIN 27.9 pg (27.0-33.4); MEAN CORPUSCULAR HGB CONC 33.4 g/dL (32.0-36.0); MEAN CORPUSCULAR VOLUME 84 fl (80-97); MONOCYTES % (AUTO) 4.2 % (3-13); PLATELET COUNT 289 10^3/uL (150-450); SEGMENTED NEUTROPHILS % (AUTO) 50.2 % (42-78); TOTAL CELLS COUNTED % (AUTO) 100 %; WHITE BLOOD COUNT 5.5 10^3/uL (4.0-10.5)
[2017-12-08 17:36] LABS: APPEARANCE,URINE SLIGHTLY-CLOUDY; BILIRUBIN,URINE NEGATIVE (NEGATIVE); COLOR,URINE YELLOW; GLUCOSE, URINE NEGATIVE (NEGATIVE); KETONES,URINE NEGATIVE (NEGATIVE); LEUKOCYTE ESTERASE,URINE LARGE (NEGATIVE); NITRITE,URINE NEGATIVE (NEGATIVE); PROTEIN,URINE NEGATIVE (NEGATIVE); URINE SPECIFIC GRAVITY 1.006; UROBILINOGEN,URINE NEGATIVE mg/dL (<2.0)
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
[2017-12-08 17:54] LABS: ALANINE AMINOTRANSFERASE 18 U/L (9-52); ALBUMIN 4.4 g/dL (3.5-5.0); ALKALINE PHOSPHATASE 68 U/L (38-126); ANION GAP 10 (5-19); ASPARTATE AMINO TRANSFERASE 16 U/L (14-36); BILIRUBIN,DIRECT 0.3 mg/dL (0.0-0.4); BILIRUBIN,TOTAL 0.5 mg/dL (0.2-1.3); BLOOD UREA NITROGEN 10 mg/dL (7-20); CALCIUM 9.9 mg/dL (8.4-10.2); CARBON DIOXIDE 23 mmol/L (22-30); CHLORIDE 106 mmol/L (98-107); GLUCOSE 88 mg/dL (75-110); POTASSIUM 4.3 mmol/L (3.6-5.0); SODIUM 138.7 mmol/L (137-145); TOTAL PROTEIN 7.4 g/dL (6.3-8.2)
[2017-12-08 18:19] LABS: BACTERIA (WET MOUNT) 4+ BACTERIA SEEN; EPITHELIALS (WET MOUNT) 4+ EPITHELIALS SEEN; RBCS (WET MOUNT) FEW RBCS SEEN; T.VAGINALIS (WET MOUNT) NO TRICHOMONAS SEEN; WBCS (WET MOUNT) 2+ WBCS SEEN; YEAST (WET MOUNT) NO YEAST SEEN
[2017-12-08 18:54] VITALS: BP 112/74
[2017-12-08 19:38] LABS: CHLAM PCR NOT DETECTED (NOT DETECT); GON PCR NOT DETECTED (NOT DETECT)
== END 2017-12-08 18:57 | disposition home or self-care (01) ==
LOC: ER 16:10
DX: N39.0 Urinary tract infection, site not specified (principal); N93.8 Other specified abnormal uterine and vaginal bleeding; R10.2 Pelvic and perineal pain; F17.200 Nicotine dependence, unspecified, uncomplicated; Z90.710 Acquired absence of both cervix and uterus
CPT/HCPCS: 36415; 80053; 81001; 85025; 86850; 86900; 86901; 87086; 87210; 87491; 87591; 99284

== ENCOUNTER 2019-01-14 14:52 | Emergency (ER) | payer OTHER, MEDICAID ==
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
[2019-01-14 16:30] VITALS: BP 128/70
== END 2019-01-14 16:35 | disposition home or self-care (01) ==
LOC: ER 14:52
DX: M25.561 Pain in right knee (principal); X58.XXXA Exposure to other specified factors, initial encounter; F17.200 Nicotine dependence, unspecified, uncomplicated; J45.909 Unspecified asthma, uncomplicated
CPT/HCPCS: 36415; 85379; 99283